=== PATIENT | male | born 1960 | race Caucasian/White ===

== ENCOUNTER 2018-07-02 10:19 | Emergency (ER) | payer OTHER ==
[2018-07-02 12:32] LABS: Urine Blood NEGATIVE (NEG); Urine Glucose NEGATIVE (NEG); Urine Protein NEGATIVE (NEG); Urine Specific Gravity >1.030 (1.005-1.030); Urine pH 5.5 (5.0-7.0)
--- NOTE | 2018-07-02 13:59 | RAD REPORT ---
EXAM DESCRIPTION: Jocy Martines And Chris (2 Views)07/02/2018 1:52 pm CLINICAL HISTORY: Chest pain COMPARISON: None FINDINGS: The lungs appear clear of acute infiltrate. The heart is normal size. A displaced rib fra cture is not seen on this limited evaluation
--- NOTE | 2018-07-02 14:02 | ER ---
Nurse's Notes [facility] Name: Allen Hardy Age: 58 yrs Sex: Male : 1960 Arrival Date: 07/02/2018 Time: 10:24 Bed 12 Private MD: None, None Diagnosis: Myalgia Presentation: 07/02 10:45 Presenting complaint: Patient states: R side pain x 1 week, reports that pain is ph reproduced upon palpation, denies injury or SOB, also denies urinary symptoms or fever N/V. Transition of care: patient was not received from another setting of care. Onset of symptoms was July 02, 2018. Risk Assessment: Do you want to hurt yourself or someone else? Patient reports no desire to harm self or others. Care prior to arrival: None. 10:45 Method Of Arrival: Ambulatory ph 10:45 Acuity: TEE 3 ph 12:22 Initial Sepsis Screen: Does the patient meet any 2 criteria? No. Patient's initial ph sepsis screen is negative. Does the patient have a suspected source of infection? No. Patient's initial sepsis screen is negative. Triage Assessment: 14:17 General: Appears. ss Historical: - Allergies: 10:48 No Known Allergies; ph - Home Meds: 10:48 None [Active]; ph - PMHx: 10:48 None; ph - PSHx: 10:48 Knee surgery; ph - Immunization history:: Adult Immunizations unknown. - Social history:: Smoking status: Patient/guardian denies using tobacco. - Ebola Screening: : No symptoms or risks identified at this time. Screenin:22 Abuse screen: Denies threats or abuse. Denies injuries from another. Nutritional ph screening: No deficits noted. Tuberculosis screening: No symptoms or risk factors identified. Fall Risk None identified. Assessment: 12:21 Pain: Complains of pain in right lateral posterior chest Pain does not radiate. Neuro: ph Level of Consciousness is awake, alert, obeys commands, Oriented to person, place, time, situation. Cardiovascular: Denies chest pain, lightheadedness, nausea, shortness of breath. Respiratory: Airway is patent Respiratory effort is even, unlabored, Respiratory pattern is regular, symmetrical, Denies shortness of breath pain with respiration, pain with cough, pain with movement. GI: No signs and/or symptoms were reported involving the gastrointestinal system. Derm: Skin is intact, is healthy with good turgor, Skin is pink, warm \T\ dry. Musculoskeletal: Circulation, motion, and sensation intact. Range of motion: intact in all extremities. 13:30 Reassessment: Patient appears in no apparent distress at this time. Patient and/or ss family updated on plan of care and expected duration. Pain level reassessed. Patient is alert, oriented x 3, equal unlabored respirations, skin warm/dry/pink. Pt awaiting xray. 14:17 Reassessment: Patient appears in no apparent distress at this time. Patient and/or ss family updated on plan of care and expected duration. Pain level reassessed. Patient is alert, oriented x 3, equal unlabored respirations, skin warm/dry/pink. Pt d/c home. Vital Signs: 10:47 BP 120 / 94; Pulse 87; Resp 18; Temp 97.7; Pulse Ox 95% on R/A; Weight 136.08 kg; ph Height 6 ft. 4 in. (193.04 cm); Pain 8/10; 14:17 BP 118 / 87; Pulse 81; Resp 18; Temp 97.6; Pulse Ox 99% on R/A; ss 10:47 Body Mass Index 36.52 (136.08 kg, 193.04 cm) ph ED Course: 10:24 Patient arrived in ED. sb2 10:25 None, None is Private Physician. sb2 10:47 Triage completed. ph 10:48 Arm band placed on Patient placed in waiting room, Patient notified of wait time. Urine ph obtained. 12:00 Alexandra Bowers FNP-C [facility]. kb 12:00 Charles Suresh MD is Attending Physician. kb 12:21 Trupti Rosen, HANNAH is Primary Nurse. ph 12:22 Patient has correct armband on for positive identification. Bed in low position. Call ph light in reach. 13:45 X-ray completed. Patient tolerated procedure well. Patient moved back from radiology. jb2 14:18 No provider procedures requiring assistance completed. Patient did not have IV access ss during this emergency room visit. Administered Medications: No medications were administered Outcome: 14:01 Discharge ordered by . kb 14:18 Discharged to home ambulatory, with family. ss 14:18 Condition: good 14:18 Discharge instructions given to patient, Instructed on discharge instructions, follow up and referral plans. medication usage, Demonstrated understanding of instructions, follow-up care, medications, Prescriptions given X 1. 14:18 Patient left the ED. Signatures: Alexandra Bowers FNP-C FNP-Ckb Buechter, Jesse jb2 Maricruz Gaspar RN RN Trupti Rosen RN RN Arias, Mayra alexander2
--- NOTE | 2018-07-02 14:02 | EDPHYS ---
Physician Documentation [facility] Name: Allen Hardy Age: 58 yrs Sex: Male : 1960 Arrival Date: 07/02/2018 Time: 10:24 Bed 12 Private MD: None, None ED Physician Charles Suresh HPI: 07/02 12:59 This 58 yrs old Male presents to ER via Ambulatory with complaints of SIDE kb PAIN. 12:59 The patient presents with pain that is acute, with no known mechanism of injury. The kb symptoms are located in the left mid back. Onset: The symptoms/episode began/occurred 1 week(s) ago. The pain does not radiate. Associated signs and symptoms: The patient has no apparent associated signs or symptoms. The problem was sustained without known cause. Modifying factors: The patient symptoms are alleviated by nothing, the patient symptoms are aggravated by movement. Severity of symptoms: At their worst the symptoms were mild, moderate, in the emergency department the symptoms are unchanged. The patient has not experienced similar symptoms in the past. The patient has not recently seen a physician. Historical: - Allergies: 10:48 No Known Allergies; ph - Home Meds: 10:48 None [Active]; ph - PMHx: 10:48 None; ph - PSHx: 10:48 Knee surgery; ph - Immunization history:: Adult Immunizations unknown. - Social history:: Smoking status: Patient/guardian denies using tobacco. - Ebola Screening: : No symptoms or risks identified at this time. ROS: 12:55 Constitutional: Negative for fever, chills, and weight loss, ENT: Negative for injury, kb pain, and discharge, Cardiovascular: Negative for chest pain, palpitations, and edema, Respiratory: Negative for shortness of breath, cough, wheezing, and pleuritic chest pain, Abdomen/GI: Negative for abdominal pain, nausea, vomiting, diarrhea, and constipation, : Negative for injury, bleeding, discharge, and swelling, MS/Extremity: Negative for injury and deformity, Skin: Negative for injury, rash, and discoloration, Neuro: Negative for headache, weakness, numbness, tingling, and seizure. 12:55 Back: Positive for of the left mid back. Exam: 12:55 Constitutional: This is a well developed, well nourished patient who is awake, alert, kb and in no acute distress. Head/Face: Normocephalic, atraumatic. Neck: Trachea midline, no thyromegaly or masses palpated, and no cervical lymphadenopathy. Supple, full range of motion without nuchal rigidity, or vertebral point tenderness. No Meningismus. Chest/axilla: Normal chest wall appearance and motion. Nontender with no deformity. No lesions are appreciated. Cardiovascular: Regular rate and rhythm with a normal S1 and S2. No gallops, murmurs, or rubs. Normal PMI, no JVD. No pulse deficits. Respiratory: Lungs have equal breath sounds bilaterally, clear to auscultation and percussion. No rales, rhonchi or wheezes noted. No increased work of breathing, no retractions or nasal flaring. Abdomen/GI: Soft, non-tender, with normal bowel sounds. No distension or tympany. No guarding or rebound. No evidence of tenderness throughout. Skin: Warm, dry with normal turgor. Normal color with no rashes, no lesions, and no evidence of cellulitis. MS/ Extremity: Pulses equal, no cyanosis. Neurovascular intact. Full, normal range of motion. Neuro: Awake and alert, GCS 15, oriented to person, place, time, and situation. Cranial nerves II-XII grossly intact. Motor strength 5/5 in all extremities. Sensory grossly intact. Cerebellar exam normal. Normal gait. 12:55 Back: pain, that is mild, of the left mid back, ROM is painful, normal spinal alignment noted. Vital Signs: 10:47 BP 120 / 94; Pulse 87; Resp 18; Temp 97.7; Pulse Ox 95% on R/A; Weight 136.08 kg; ph Height 6 ft. 4 in. (193.04 cm); Pain 8/10; 14:17 BP 118 / 87; Pulse 81; Resp 18; Temp 97.6; Pulse Ox 99% on R/A; ss 10:47 Body Mass Index 36.52 (136.08 kg, 193.04 cm) ph MDM: 12:00 Patient medically screened. kb 12:55 Data reviewed: vital signs, nurses notes. Data interpreted: Pulse oximetry: on room air kb is 95 %. Interpretation: acceptable. 14:01 Counseling: I had a detailed discussion with the patient and/or guardian regarding: the kb historical points, exam findings, and any diagnostic results supporting the discharge/admit diagnosis, radiology results, the need for outpatient follow up, a family practitioner, to return to the emergency department if symptoms worsen or persist or if there are any questions or concerns that arise at home. 07/02 11:05 Order name: Urine Dipstick--Ancillary (enter results); Complete Time: 12:34 em1 07/02 12:03 Order name: Chest Pa And Lat (2 Views) XRAY kb 07/02 11:06 Order name: Urine Dipstick-Ancillary (obtain specimen); Complete Time: 12:04 em1 07/02 14:01 Order name: RAD; Complete Time: 14:03 EDMS Administered Medications: No medications were administered Disposition: 07/02/18 14:01 Discharged to Home. Impression: Myalgia. - Condition is Stable. - Discharge Instructions: Back Pain, Adult, [id number]. - Prescriptions for Diclofenac Sodium 75 mg Oral Tablet, Delayed Release (E.C.) - take 1 tablet by ORAL route 2 times per day As needed; 30 tablet. - Work release form, Medication Reconciliation Form, Thank You Letter, Antibiotic Education, Prescription Opioid Use form. - Follow up: Emergency Department; When: As needed; Reason: Worsening of condition. Follow up: Private Physician; When: 2 - 3 days; Reason: Recheck today's complaints, Continuance of care, Re-evaluation by your physician. Addendum: 07/04/2018 09:08 Co-signature as Attending Physician, Charles Suresh MD I agree with the assessment and k dr plan of care. Signatures: Dispatcher [employer] EDVA Alexandra Bowers, PRODUCTION SHIFT SUPERVISOR-C PRODUCTION SHIFT SUPERVISOR-CkCharles Landers MD MD [facility] Higinio Phillip em1 Maricruz Gaspar, HANNAH RN ss Trupti Rosen RN RN ph Corrections: (The following items were deleted from the chart) 07/02 14:18 14:01 07/02/2018 14:01 Discharged to Home. Impression: Myalgia. Condition is Stable. ss Forms are Medication Reconciliation Form, Thank You Letter, Antibiotic Education, Prescription Opioid Use. Follow up: Emergency Department; When: As needed; Reason: Worsening of condition. Follow up: Private Physician; When: 2 - 3 days; Reason: Recheck today's complaints, Continuance of care, Re-evaluation by your physician. kb
== END 2018-07-02 14:18 | disposition home or self-care (01) ==
LOC: ER 10:19
DX: M79.10 Myalgia, unspecified site (principal)
CPT/HCPCS: 71046; 81003; 99283

== ENCOUNTER 2021-11-01 20:48 | Emergency (ER) | payer OTHER ==
--- OUTSIDE RECORDS SUMMARY | 2021-11-01 20:50 | XMS REPORT | Continuity of Care Document ---
:1960 Author Organization [facility] t Address [address] [place] [address] Care Team Providers Name Role Phone MARVEL SEWELL Attending Clinician Unavailable Mery MCNEILL Attending Clinician Payers Payer Name Policy Type Policy Number Effective Date Expiration Date [facility] [id number] 2016 CHOICE 00:00:00 Problems Condition Condition Condition Status Onset Resolution Last Treating Co mments Source Name Details Category Date Date Treatment Clinician Date No known No known Disease [facility] active [place] problems problems of Medicin e Allergies, Adverse Reactions, Alerts Allergy Allergy Status Severity Reaction(s) Onset Inactive Treating Comm ents Source Name Type Date Date Clinician NO KNOWN Drug Active Univers ALLERGIE Class ity of [facility] Social History Social Habit Start Date Stop Date Quantity Comments Source Sex Assigned At [facility] Co llege of Medicine Alcohol intake 2019-08-25 2019-08-25 Current [facility] Col lege 00:00:00 00:00:00 non-drinker of of Medicin e alcohol (finding) Smoking Status Start Date Stop Date Source Never smoker [facility] o f Medicine Medications Ordered Filled Start Stop Current Ordering Indication Dosage Frequency Signature Comments Components Source Medication Medication Date Date Medication? Clinician (SIG) Name Name Cholecalcif 2020- No 1000U Take 1,000 [facility] [place] 08-25 Units by [place] (VITAMIN 16:35: 00:00 mouth. of D-1000 MAX 08 :[address]) 1000 e units TABS azelastine 2018-08 2020- No [id number] USE 2 [facility] (ASTELIN) 08-07 SPRAYS IN [place] ege 0.1 % nasal 00:00: 00:00 EACH of spray 00 :00 NOSTRIL 2 Medicin TIMES A e DAY fluticasone 2018-08 2020- No [id number] SPRAY 2 [facility] (FLONASE) 08-07 SPRAYS [place] 50 MCG/ACT 00:00: 00:00 INTO EACH o f nasal spray 00 :00 NOSTRIL Medic in EVERY DAY e testosteron 2019- No INJECT 1 [facility] [place] e cypionate 01-28 [facility] [facility] ollege (DEPOTESTOT 00:00: 00:00 S of ERONE 00 :00 INTRAMUSCU Medicin CYPIONATE) ALLRY ONCE e 200 MG/ML A WEEK injection [facility] ALLERGY 2019- No TAKE 1 [place] wong RELIEF-D 08-04 TABLET BY Colle ge 10-240 MG 00:00: 00:00 MOUTH of per tablet 00 :00 EVERY DAY Medi radha e fluticasone 2019- No SPRAY 2 [facility] (FLONASE) 08-04 SPRAYS [place] 50 MCG/ACT 00:00: 00:00 INTO EACH o f nasal spray 00 :00 NOSTRIL Medic in EVERY DAY e Vital Signs Vital Name Observation Time Observation Value Comments Source Body height 2019-08-25 16:34:00 193 cm [facility] ollege of Medicine Body weight 2019-08-25 16:34:00 133.811 kg [facility] ol[facility] of Medicine BMI 2019-08-25 16:34:00 35.91 kg/m2 [facility] ollege of Medicine Procedures This patient has no known procedures. Plan of Care Planned Activity Planned Date Details Comments Source Future Scheduled ORT - XR KNEE LEFT Ordered: 0 [facility] Test 4V (CHARGE ONLY) of Medicine [code = 76573] Future Scheduled HANDICAPPED PLACARD Ordered: 08/25/19 20 [facility] Test [code = NOCPT] of Medicine Future Scheduled COLON CANCER [facility] ege Test SCREENING: of Medicine COLONOSCOPY [code = COLON CANCER SCREENING: COLONOSCOPY] Future Scheduled TETANUS SHOT [facility] ege Test (ADULT) [code = of Medicine TETANUS SHOT (ADULT)] Future Scheduled BMI FOLLOW UP PLAN [facility] r [place] Test [code = BMI FOLLOW of Medici ne UP PLAN] Future Scheduled HEPATITIS C [facility] ege Test SCREENING [code = of Medicin e HEPATITIS C SCREENING] Future Scheduled HIV SCREENING [code [facility] or [place] Test = HIV SCREENING] of Medicine Future Scheduled FLU VACCINE > 6 [facility] C ollege Test MONTHS [code = FLU of Medici ne VACCINE > 6 MONTHS] Future Scheduled GEL ONE PROC INJ 1 Occurrences [facility] Test [code = 67833] starting 08/25/2019 of Med icine until 08/25/2020 Encounters Start End Encounter Admission Attending Care Care Encounter Source Date/Time Date/Time Type Type Clinicians Facility Department ID 2020-11-01 2020-11-01 Outpatient [facility] [id number] Univers 15:40:00 15:40:[id number] [facility] 2020-11-01 2020-11-01 Outpatient [facility] [id number] Univers 15:40:00 15:40:00 [facility] 2020-10-11 2020-10-11 Outpatient Khalida SEWELL, [facility] [id number] Univers 17:30:00 17:30:[address] [facility] 2019-08-25 2019-08-25 Office MARCY Ordonez [id number] [facility] 09:44:26 12:05:42 Visit Brien AMBULATOR [id number] College Y [id number] of [id number] Medi radha 600 e Results Test Description Test Time Test Comments Results Result Sour e Comments CT, MAXILLOFACIAL 2019-02-01 FINAL REPORT PATIENT ID: CANDIS TRAN [id number] History: 13:05:00 Chronic sinusitisComparison studies: None Technique: Axial images were obtained through the paranasal sinuses.Coronal and sagittal images reconstructed from the axial data.Radiation dose: Total DLP: To 89 mGy*cm. Estimated effective dose: DLP x 0.015 Intravenous contrast: None Findings: Paranasal sinuses: Right anterior complex:Frontal sinus: Clear.Frontonasal recess: Clear.Anterior ethmoid air cells: Clear.Ostiomeatal unit: Clear.Maxillary sinus: Clear. Left anterior complex:Frontal sinus: Clear.Frontonasal recess: Clear.Anterior ethmoid air cells: Clear.Ostiomeatal unit: Clear.Maxillary sinus: Nearly completely opacified with mucosal thickening and retention cyst or polyp. Posterior complex:Sphenoid sinuses: Clear.Sphenoethmoidal recesses: Clear.Posterior ethmoid air cells: Clear. Nasal vestibule and nasal cavity:A 2.5 cm polypoid lesion with likely attachment the left middle turbinate or nasal septum projects posteriorly through the left nasal cavity and nasal choana to the nasopharynx. Nasal septum: S-shaped nasal septal deviation. The anterior cartilaginous septum is deviated to the patient's right. The bony septum is deviated to the patient's left Other: Agger Nasi: Clear bilaterally.Turbinates: No martin bullosa.Rosio cells: None Lamina papyracea: Intact.Cribriform plates: Asymmetric, approximately 8.5 mm on the right and 7 mm on the left globe the level of the fovea ethmoidalis.Olfactory recesses: ClearOptic canals: Not dehiscentOnodi cells: NoneInternal carotid arteries: Not is not. Sphenoid sinuses: Dominant right sinus. The lateral recesses are not aerated. Orbits: No abnormalities.Bones: No abnormalities.Temporal bones: No gross abnormalities. IMPRESSION: 1.Left nasal polypoid lesion with attachment near the septum or middle turbinate extends into the left nasal cavity. Recommend correlation with direct visualization.2.S-shaped nasal septal deviation.3.Opacified left maxillary sinus, likely by polyp or retention cyst.4.Remaining sinuses are clear. Patent sinus drainage pathways. Signed: Faraz Bassett MDReport Verified Date/Time: 02/22/2019 13:05:06 Reading Location: [facility] Room [address] [place] [address]
[2021-11-01 21:10] LABS: Urine Blood Trace-intact (Negative); Urine Glucose Negative (Negative); Urine Protein Negative (Negative); Urine Specific Gravity >=1.030 (1.005-1.030)
[2021-11-01] MEDS ORDERED: MORPHINE 4 MG/ML SYR ONE (22:57)
[2021-11-01 23:31] LABS: Absolute Lymphocytes (CBC) 1.9 K/uL (0.7-4.9); Hematocrit 43.7 % (39.6-49.0); Lymphocytes % 24.8 % (15.3-44.8); MPV 7.9 fL (7.6-11.3); RBC Red Blood Cell Count 4.92 M/uL (4.33-5.43)
[2021-11-01 23:47] LABS: Albumin 3.4 g/dL (3.4-5.0); Bilirubin Total 0.8 mg/dL (0.2-1.0); Potassium 3.7 mmol/L (3.5-5.1)
[2021-11-02] MEDS ORDERED: NA CHLORIDE 0.9% 1,000 ML ONE (00:18)
[2021-11-02] MEDS ORDERED: NA CHLORIDE 0.9% 100 ML IV ONE (00:35)
[2021-11-02] MEDS ORDERED: CEFTRIAXONE 1000 MG/VIAL ONE (00:35)
[2021-11-02] MEDS ORDERED: METRONIDAZOLE 500mg IVPB 500 MG/100 ML BAG IV ONE (00:36)
--- NOTE | 2021-11-02 00:56 | EDPHYS ---
Physician Documentation [facility] Name: Allen Hardy Age: 61 yrs Sex: Male : 1960 Arrival Date: 11/01/2021 Time: 20:52 Bed 16 Private MD: ED Physician Eric Burris HPI: 11/02 00:11 This 61 yrs old Male presents to ER via Ambulatory with complaints of Flank Pain - Left.mh7 00:11 The patient complains of pain in the left flank. The pain does not radiate. Onset: The mh7 symptoms/episode began/occurred 3 day(s) ago. Modifying factors: The symptoms are alleviated by nothing. the symptoms are aggravated by movement, palpation/percussion. Associated signs and symptoms: Pertinent negatives: diarrhea, dizziness, dysuria, fever, urinary frequency, headache, hematuria, nausea, pain radiating to the lower extremities, vomiting. Severity of pain: At its worst the pain was moderate yesterday, in the emergency department the pain has improved moderately. Historical: - Allergies: 11/01 21:01 No Known Allergies; ab2 - Home Meds: 21: None [Active]; ab2 - PMHx: 21: None; ab2 - Immunization history:: Adult Immunizations up to date. - Social history:: Smoking status: Patient denies any tobacco usage or history of. ROS: 11/02 00:11 Constitutional: Negative for fever, chills, and weight loss, Eyes: Negative for injury, mh7 pain, redness, and discharge, ENT: Negative for injury, pain, and discharge, Neck: Negative for injury, pain, and swelling, Cardiovascular: Negative for chest pain, palpitations, and edema, Respiratory: Negative for shortness of breath, cough, wheezing, and pleuritic chest pain, Abdomen/GI: Negative for abdominal pain, nausea, vomiting, diarrhea, and constipation, : Negative for injury, bleeding, discharge, and swelling, MS/Extremity: Negative for injury and deformity, Skin: Negative for injury, rash, and discoloration, Neuro: Negative for headache, weakness, numbness, tingling, and seizure, Psych: Negative for depression, anxiety, suicide ideation, homicidal ideation, and hallucinations, Allergy/Immunology: Negative for hives, rash, and allergies, Endocrine: Negative for neck swelling, polydipsia, polyuria, polyphagia, and marked weight changes, Hematologic/Lymphatic: Negative for swollen nodes, abnormal bleeding, and unusual bruising. Exam: 00:11 Constitutional: This is a well developed, well nourished patient who is awake, alert, mh7 and in no acute distress. Head/Face: Normocephalic, atraumatic. Eyes: Pupils equal round and reactive to light, extra-ocular motions intact. Lids and lashes normal. Conjunctiva and sclera are non-icteric and not injected. Cornea within normal limits. Periorbital areas with no swelling, redness, or edema. Neck: Trachea midline, no thyromegaly or masses palpated, and no cervical lymphadenopathy. Supple, full range of motion without nuchal rigidity, or vertebral point tenderness. No Meningismus. Chest/axilla: Normal chest wall appearance and motion. Nontender with no deformity. No lesions are appreciated. Cardiovascular: Regular rate and rhythm with a normal S1 and S2. No gallops, murmurs, or rubs. Normal PMI, no JVD. No pulse deficits. Respiratory: Lungs have equal breath sounds bilaterally, clear to auscultation and percussion. No rales, rhonchi or wheezes noted. No increased work of breathing, no retractions or nasal flaring. 00:11 Back: No spinal tenderness. No costovertebral tenderness. Full range of motion. Skin: Warm, dry with normal turgor. Normal color with no rashes, no lesions, and no evidence of cellulitis. MS/ Extremity: Pulses equal, no cyanosis. Neurovascular intact. Full, normal range of motion. Neuro: Awake and alert, GCS 15, oriented to person, place, time, and situation. Cranial nerves II-XII grossly intact. Motor strength 5/5 in all extremities. Sensory grossly intact. Cerebellar exam normal. Normal gait. Psych: Awake, alert, with orientation to person, place and time. Behavior, mood, and affect are within normal limits. 00:11 Abdomen/GI: Inspection: obese Bowel sounds: normal, Palpation: mild abdominal tenderness, in the left lower quadrant, mass, is not appreciated, rebound tenderness, is not appreciated, voluntary guarding, is not appreciated, involuntary guarding, is not appreciated, no appreciated organomegaly, Rectal exam: the exam is deferred, because of patient request, Indicators: McBurney's point is not tender, Raman's sign is negative, Rovsing's sign is negative, Obturator sign is negative, Psoas sign is negative, Liver: no appreciated palpable abnormalities, Hernia: not appreciated. Vital Signs: 11/01 20:57 BP 111 / 89; Pulse 96; Resp 16; Temp 98.1; Pulse Ox 98% ; Weight 136.98 kg; Height 6 ab2 ft. 4 in. (193.04 cm); Pain 10/10; 22:44 Pulse 96; Resp 20; Pulse Ox 100% on R/A; Pain 10/10; tw5 11/02 00:25 BP 124 / 80; Pulse 76; Resp 16; Pulse Ox 100% on R/A; Pain 0/10; josesito 01:17 BP 126 / 76; Pulse 72; Resp 16; Temp 98.5; Pulse Ox 100% on R/A; Pain 0/10; josesito 11/01 20:57 Body Mass Index 36.76 (136.98 kg, 193.04 cm) ab2 MDM: 00:51 Differential diagnosis: nephrolithiasis, pyelonephritis, UTI, diverticulitis. Data [facility] reviewed: vital signs, nurses notes, lab test result(s), CBC, electrolytes, urinalysis, radiologic studies, CT scan. Data interpreted: Pulse oximetry: on room air is 100 %. Interpretation: normal. Counseling: I had a detailed discussion with the patient and/or guardian regarding: the historical points, exam findings, and any diagnostic results supporting the discharge/admit diagnosis, lab results, radiology results, the need for outpatient follow up, a concrete stone finisher. Response to treatment: the patient's symptoms have resolved after treatment, the patient's blood pressure is in an acceptable range, mental status has returned to baseline, the patient no longer shows bradycardia, the patient is not short of breath, the patient is not tachycardic, the patient's pain is gone, the patient's temperature has normalized, patient is well hydrated. 00:55 Patient medically screened. [facility] 11/01 21:10 Order name: Urine Dipstick-Ancillary; Complete Time: 22:47 EDMS 11/01 22:49 Order name: CBC with Diff; Complete Time: 23:48 [facility] 11/01 22:49 Order name: CMP; Complete Time: 23:48 [facility] 11/01 22:49 Order name: Lipase; Complete Time: 23:48 [facility] 11/01 22:49 Order name: CT Stone Protocol [facility] 11/01 21:04 Order name: Urine Dipstick-Ancillary (obtain specimen); Complete Time: 21:04 ab2 11/01 22:49 Order name: IV Saline Lock; Complete Time: 23:20 [facility] 11/01 22:49 Order name: Labs collected and sent; Complete Time: 23:21 [facility] Administered Medications: 11/01 23:24 Drug: morphine 4 mg Route: IM; Site: right deltoid; 5 11/02 00:25 Drug: NS 0.9% 1000 ml Route: IV; Rate: 1 bolus; Site: right hand; josesito 01:30 Follow up: IV Status: Completed infusion; IV Intake: 1000ml josesito 00:38 Drug: Rocephin (cefTRIAXone) 1 grams Route: IV; Rate: per protocol; Site: right hand; josesito 00:48 Follow up: IV Status: Completed infusion; IV Intake: 100ml josesito 00:49 Drug: Flagyl (metroNIDAZOLE) 500 mg Volume: 100 ml; Route: IVPB; Rate: 200 ml/hr; josesito Infused Over: 30 mins; Site: right hand; 01:29 Follow up: Response: No adverse reaction; IV Status: Completed infusion; IV Intake: josesito 100ml Disposition Summary: 11/02/21 00:55 Discharge Ordered Location: Home [facility] Problem: new [facility] Symptoms: have improved [facility] Condition: Stable [facility] Diagnosis - Diverticulitis of intestine, part unspecified, without perforation or abscess [facility] without bleeding Followup: [facility] - With: Private Physician - When: 1 - 2 days - Reason: Worsening of condition, Recheck today's complaints, Continuance of care, Re-evaluation by your physician Followup: [facility] - With: Smith Myers MD - When: 2 - 3 days - Reason: Worsening of condition, Further diagnostic work-up, Recheck today's complaints Discharge Instructions: - Discharge Summary Sheet [facility] - High-Fiber Diet [facility] - Diverticulitis, [id number] [facility] Forms: - Medication Reconciliation Form [facility] - Thank You Letter [facility] - Antibiotic Education [facility] - Prescription Opioid Use [facility] Prescriptions: - Flagyl 500 mg Oral Tablet - take 1 tablet by ORAL route every 8 hours for 10 days; 30 tablet; Refills: 0, [facility] Product Selection Permitted - Cipro 500 mg Oral Tablet - take 1 tablet by ORAL route every 12 hours for 7 days; 14 tablet; Refills: 0, [facility] Product Selection Permitted - dicyclomine 20 mg Oral Tablet - take 1 tablet by ORAL route 4 times per day As needed; 20 tablet; Refills: 0, [facility] Product Selection Permitted Signatures: Dispatcher [employer] Eric Rosas MD MD [facility] Tia Piedra [facility] Ping Neal RN RN Karel Weller 2
--- NOTE | 2021-11-02 00:56 | ER ---
Nurse's Notes [facility] Name: Allen Hardy Age: 61 yrs Sex: Male : 1960 Arrival Date: 11/01/2021 Time: 20:52 Bed 16 Private MD: Diagnosis: Diverticulitis of intestine, part unspecified, without perforation or abscess without bleeding Presentation: 11/01 20:57 Chief complaint: Patient states: "I'm having pain on the left side that started 3 days ab2 ago." Pt states he went to a clinic in [place] and they told him he had some blood in the urine but did not prescribe him anything. Coronavirus screen: Vaccine status: Patient reports receiving the 2nd dose of the covid vaccine. Client denies travel out of the [place] in the last 14 days. At this time, the client does not indicate any symptoms associated with coronavirus-19. Ebola Screen: Patient negative for fever greater than or equal to 101.5 degrees Fahrenheit, and additional compatible Ebola Virus Disease symptoms Patient denies exposure to infectious person. Patient denies travel to an Ebola-affected area in the 21 days before illness onset. No symptoms or risks identified at this time. Initial Sepsis Screen: Does the patient meet any 2 criteria? No. Patient's initial sepsis screen is negative. Does the patient have a suspected source of infection? No. Patient's initial sepsis screen is negative. Risk Assessment: Do you want to hurt yourself or someone else? Patient reports no desire to harm self or others. Onset of symptoms is unknown. 20:57 Method Of Arrival: Ambulatory ab2 20:57 Acuity: TEE 3 ab2 Triage Assessment: 21:01 General: Appears in no apparent distress. uncomfortable, Behavior is calm, cooperative, ab2 appropriate for age. Pain: Complains of pain in left mid back Pain currently is 10 out of 10 on a pain scale. EENT: No deficits noted. No signs and/or symptoms were reported regarding the EENT system. Neuro: No deficits noted. 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 Gait is steady, Speech is normal. Cardiovascular: No deficits noted. Respiratory: No deficits noted. Airway is patent Respiratory effort is even, unlabored, Respiratory pattern is regular, symmetrical. GI: No deficits noted. No signs and/or symptoms were reported involving the gastrointestinal system. : Reports blood in urine. Derm: Skin is intact, is healthy with good turgor, Skin is pink, warm \\T\\ dry. Historical: - Allergies: 21: No Known Allergies; ab2 - Home Meds: 21: None [Active]; ab2 - PMHx: 21: None; ab2 - Immunization history:: Adult Immunizations up to date. - Social history:: Smoking status: Patient denies any tobacco usage or history of. Screenin/02 00:25 Abuse screen: Denies threats or abuse. Denies injuries from another. Nutritional josesito screening: No deficits noted. Tuberculosis screening: No symptoms or risk factors identified. Fall Risk None identified. Assessment: 11/01 22:40 General: Patient rounding in waiting room patient states "It is a really sharp pain in tw5 my flank. I have never had a pain like this before. I took some advil last night but that is the last time I took anything for pain." . 23:42 Reassessment: The pt was moved to room #16 at this time. josesito 11/02 01:17 Reassessment: No changes from previously documented assessment. The pt's last abx is josesito infusing and then he will be dc'd home. The MD discussed the findings with the pt and his . He will f/u. Vital Signs: 11/01 20:57 BP 111 / 89; Pulse 96; Resp 16; Temp 98.1; Pulse Ox 98% ; Weight 136.98 kg; Height 6 ab2 ft. 4 in. (193.04 cm); Pain 10/10; 22:44 Pulse 96; Resp 20; Pulse Ox 100% on R/A; Pain 10/10; tw5 11/02 00:25 BP 124 / 80; Pulse 76; Resp 16; Pulse Ox 100% on R/A; Pain 0/10; josesito 01:17 BP 126 / 76; Pulse 72; Resp 16; Temp 98.5; Pulse Ox 100% on R/A; Pain 0/10; josesito 11/01 20:57 Body Mass Index 36.76 (136.98 kg, 193.04 cm) ab2 ED Course: 04/01 20:52 Patient arrived in ED. kz 21:01 Triage completed. ab2 21:01 Arm band placed on right wrist. ab2 22:44 Patient notified of wait time. tw5 22:[address] ambulated with Tech from waiting room. tw5 23:11 CT Stone Protocol In Process Unspecified. EDMS 23:21 CBC with Diff Sent. tw5 23:21 CMP Sent. tw5 23:21 Lipase Sent. tw5 23:42 Ping Neal, HANNAH is Primary Nurse. josesito 23:44 Eric Burris MD is Attending Physician. 7 11/02 00:38 No provider procedures requiring assistance completed. Inserted saline lock: 20 gauge josesito in right hand, using aseptic technique. 00:39 Patient has correct armband on for positive identification. Bed in low position. Call josesito light in reach. Side rails up X 1. Adult w/ patient. 00:54 Smith Myers MD is Referral Physician. 7 01:31 intact, bleeding controlled, No redness/swelling at site. Pressure dressing applied. josesito Administered Medications: 11/01 23:24 Drug: morphine 4 mg Route: IM; Site: right deltoid; tw5 11/02 00:25 Drug: NS 0.9% 1000 ml Route: IV; Rate: 1 bolus; Site: right hand; josesito 01:30 Follow up: IV Status: Completed infusion; IV Intake: 1000ml josesito 00:38 Drug: Rocephin (cefTRIAXone) 1 grams Route: IV; Rate: per protocol; Site: right hand; josesito 00:48 Follow up: IV Status: Completed infusion; IV Intake: 100ml josesito 00:49 Drug: Flagyl (metroNIDAZOLE) 500 mg Volume: 100 ml; Route: IVPB; Rate: 200 ml/hr; josesito Infused Over: 30 mins; Site: right hand; 01:29 Follow up: Response: No adverse reaction; IV Status: Completed infusion; IV Intake: josesito 100ml Intake: 00:48 IV: 100ml; Total: 100ml. josesito 01:29 IV: 100ml; Total: 200ml. josesito 01:30 IV: 1000ml; Total: 1200ml. josesito Outcome: 00:39 Condition: stable josesito 00:55 Discharge ordered by . 7 01:30 Discharged to home ambulatory, with family. josesito 01:30 Discharge instructions given to patient, Instructed on discharge instructions, follow up and referral plans. Demonstrated understanding of instructions, follow-up care, medications, Prescriptions given X 3. 01:31 Patient left the ED. josesito Signatures: Dispatcher [employer] Eric Rosas MD MD 7 Tia Piedra 5 Ping Neal RN RN Karel Weller Kelly kz
[2021-11-02 03:33] VITALS: O2SAT 100
[2021-11-02 03:36] VITALS: BP 126/76; TEMP 98.5
--- NOTE | 2021-11-02 12:56 | RAD REPORT ---
EXAM DESCRIPTION: CT - Stone Protocol - 11/02/2021 7:00 am CLINICAL HISTORY: 61 years Male, FLANK PAIN TECHNIQUE: Helical CT axial images are obtained from the lung bases to the pubic symphysis without I V contrast. No oral contrast was administered. Multiplanar reconstruction. This exam was performed ac cording to our departmental dose-optimization program, which includes automated exposure control, adj ustment of the mA and/or kV according to patient size and/or use of iterative reconstruction techniqu e. COMPARISON: 11/14/2012 FINDINGS: LUNG BASES: No basilar consolidation or effusions. LIVER: Normal in size. Normal attenuation. No focal masses. HEPATOBILIARY: Normal-appearing gallbladder. No intra- or extrahepatic ductal dilatation. SPLEEN: Normal size. PANCREAS: Normal size and contour. No focal mass. ADRENAL GLANDS: Normal size. No adrenal masses. KIDNEYS: No obstructing calculi or hydronephrosis bilaterally. Couple of 2 mm nonobstructing calcul i right upper and right lower pole. No left nephrolithiasis. No significant cysts are present. BOWEL AND MESENTERY: Moderate wall thickening distal descending colon with pericolonic fat stranding and subjacent diverticula. Additional diverticulosis throughout the remainder of the descending colon and throughout the sigmoid colon. No free fluid or peridiverticular abscess. Small hiatal hernia. No small or large bowel dilatation. Normal appendix. No abnormal mesenteric lymphadenopathy. No pne umoperitoneum. RETROPERITONEUM: Normal caliber abdominal aorta without aneurysm. Mild ASVD with tortuosity. No abn ormal retroperitoneal lymphadenopathy. PELVIS: Urinary bladder is suboptimally distended. Normal-sized prostate gland. ABDOMINAL WALL: The abdominal wall is intact. BONES: No suspicious osseous lytic or blastic lesions seen. IMPRESSION: 1. Acute uncomplicated diverticulitis of distal descending colon. No free fluid or per idiverticular abscess. 2. Couple of 2 mm nonobstructing calculi right upper and right lower pole. No obstructive uropathy. 3. Small hiatal hernia. Electronically signed by: Raafel Womack MD 11/01/2021 11:43 PM CDT Due to temporary technical issues with the PACS/Fluency reporting system, reports are being signed by the in house radiologists without review as a courtesy to insure prompt reporting. The interpreting radiologist is fully responsible for the content of the report.
== END 2021-11-02 01:31 | disposition home or self-care (01) ==
LOC: ER 20:48
DX: K57.32 Diverticulitis of large intestine without perforation or abscess without bleeding (principal)
CPT/HCPCS: 96365; 85025; 36415; 81003; 83690; 80053; 76377; 74176; 96375; 96372; 99284; J7030

== ENCOUNTER 2023-01-21 20:05 | Emergency (ER) | payer OTHER ==
--- OUTSIDE RECORDS SUMMARY | 2023-01-21 20:10 | XMS REPORT | Continuity of Care Document ---
:1960 Author Organization [facility] t Address [address] [place] [id number] [place] [id number] Care Team Providers Name Role Phone GINA HICKS JR Primary Care Physician Unavailable Brien Padilla MD Attending Clinician ATA REVELES Attending Clinician Unavailable ATA REVELES Attending Clinician Unavailable Ata Reveles MD Attending Clinician BRIEN PADILLA Attending Clinician Unavailable Brien Padilla MD Attending Clinician [phone] Constance Reardon MD Attending Clinician Obey Lomeli MD Attending Clinician Soren Garcia MD Attending Clinician Only, Ang Db Test Attending Clinician Unavailable Yovany Hebert MD Attending Clinician YOVANY HEBERT Attending Clinician Unavailable BRIEN PADILLA Attending Clinician Unavailable MARVEL SEWELL Attending Clinician Unavailable BRIEN PADILLA Admitting Clinician Unavailable Payers Payer Name Policy Type Policy Number Effective Date Expiration Date S [facility] [id number] INDIVIDUAL [facility] EXCHANGE [id number] 2021 00:00:00 [facility] [id number] 2016 CHOICE 00:00:00 Problems Condition Condition Condition Status Onset Resolution Last Treating Co mments Source Name Details Category Date Date Treatment Clinician Date Pes Pes Disease Active [facility] anserinus anserinus 01-19 [facility] bursitis bursitis 00:00: of of left of left 00 Medicin knee knee e Trochanter Trochanter Disease Active [facility] 01[facility]19 College bursitis bursitis 00:00: of of right of right 00 Medici n hip hip e Arthritis Arthritis Disease Active [facility] No known No known Disease Unive rs active active ity of problems problems [facility] Allergies, Adverse Reactions, Alerts Allergy Allergy Status Severity Reaction(s) Onset Inactive Treating Comm ents Source Name Type Date Date Clinician NO KNOWN Drug Active Univers ALLERGIE Class ity of S [facility] NO KNOWN Allergy Active [facility] St ALLERGIE [facility] Social History Social Habit Start Date Stop Date Quantity Comments Source Gender identity 2021-12-19 Identifies as [facility] 07:53:11 male gender Medicine (finding) Sexual orientation [facility] History of Social 2022-05-09 2022-05-09 [facility] College of function 00:00:00 00:00:00 Medicine Alcohol intake 2022-02-12 2022-02-12 Ex-drinker [facility] Jyothi es 00:00:00 00:00:00 (finding) Medical Center Exposure to 2022-01-28 2022-02-07 Not sure University SARS-CoV-2 (event) 00:00:00 09:55:00 [facility] Tobacco use and 2022-01-31 2022-01-31 Smokeless tobacco [facility] exposure 00:[facility]00 00:00:00 non-user [facility] Sex Ass[birth year] At [birth year] [facility] [place] udays 00:00:00 00:00:00 [facility] Smoking Status Start Date Stop Date Source Never smoked tobacco [facility] Medications Ordered Filled Start Stop Current Ordering Indication Dosage Frequency Signature Comments Components Source Medication Medication Date Date Medication? Clinician (SIG) Name Name oxycodone-a 2021- No 1{tbl} Take 1 [facility] cetaminophe 8-25 08-25 Tablet by Co llege n 10:54: 00:00 mouth of (PERCOCET) 16 :00 every 6 Medici n 10-325 MG hours as e per tablet needed. oxycodone-a Yes 1{tbl} Take 1 [facility] cetaminophe 8-16 Tablet by Col lege n 08:16: mouth of (PERCOCET) 33 every 6 Medici n 10-325 MG hours as e per tablet needed. metoprolol 2021- No 50mg Take 50 mg [facility] (TOPROL-XL) 8-16 08-16 by mouth. Co llege 50 MG XL 08:16: 00:00 of tablet 08 :00 Medicin e metoprolol Yes 50mg Take 50 mg [facility] (TOPROL-XL) 7-28 by mouth. Col lege 50 MG XL 09:55: of tablet 43 Medicin e gabapentin Yes 300mg Take 1 [facility] (NEURONTIN) 7- capsule by Co llege 300 MG 00:00: mouth 3 of capsule 00 times Medicin daily. e gabapentin 0 Yes 300mg Take 1 [facility] (NEURONTIN) 7-28 capsule by Co llege 300 MG 00:00: mouth 3 of capsule 00 times Medicin daily. e gabapentin 2021-2021- No 300mg Take 1 [facility] (NEURONTIN) - 08-25 capsule by C ollege 300 MG 00:00: 00:00 mouth 3 of capsule 00 :00 times Medicin daily. e oxycodone-a 2021-2021- No 1{tbl} Take 1 [facility] cetaminophe 7- 08-05 Tablet by Co llege n 00:00: 04:59 mouth of (PERCOCET) 00 :00 every 6 Medici n 10-325 MG hours as e per tablet needed for up to 7 days. aspirin 325 2021-2021- No 325mg Take 325 [facility] mg tablet 02-14 08-15 mg by Anju 00:00: 04:59 mouth. of 00 :00 Medicin e aspirin 325 2021-2021- No 325mg QD Take [address] [facility] tablet 7-15 08-14 tablet [facility] 00:00: 23:59 (325 mg Medical 00 :00 total) by Center mouth daily for 30 days. aspirin 325 0 2021- No 325mg QD Take [address] [facility] tablet 02-14 tablet [facility] 00:00: 23:59 (325 mg Medical 00 :00 total) by Center mouth daily for 30 days. aspirin 325 2021-0 2021- No 325mg QD Take [address] [facility] tablet 02-14 tablet [facility] 00:00: 23:59 (325 mg Medical 00 :00 total) by Center mouth daily for 30 days. metoprolol Yes 50mg QD Take [address] succinate 7-14 by mouth [facility] (TOPROL-XL) 11:38: daily. Medi gildardo 50 MG 24 hr 00 Center tablet testosteron 0 Yes 200mg Q7D Inject [address] e cypionate 7-14 mg [facility] (DEPOTESTOT 11:38: intramuscu Medical ERONE 00 larly once Center CYPIONATE) a week. 200 mg/mL injection LOVASTATIN 0 Yes QD Take by [facility] ORAL 7-14 [facility] 11:38: daily. [address] IBUPROFEN 0 Yes Take by [facility] ORAL 7-14 mouth as [facility] 11:38: needed. [address] metoprolol 0 Yes 50mg QD Take [address] succinate 7-14 by mouth [facility] (TOPROL-XL) 11:38: daily. Medi gildardo 50 MG 24 hr 00 Center tablet testosteron 0 Yes 200mg Q7D Inject [address] e cypionate 7-14 mg [facility] (DEPOTESTOT 11:38: intramuscu Medical ERONE 00 larly once Center CYPIONATE) a week. 200 mg/mL injection LOVASTATIN 2021-0 Yes QD Take by [facility] ORAL 7-14 [facility] 11:38: daily. [address] IBUPROFEN 0 Yes Take by [facility] t ORAL 7-14 mouth as [facility] 11:38: needed. [address] metoprolol 2021-0 Yes 50mg QD Take [address] succinate 7-14 by mouth [facility] (TOPROL-XL) 11:38: daily. Medi gildardo 50 MG 24 hr 00 Center tablet testosteron Yes 200mg Q7D Inject [address] e cypionate 7-14 mg [facility] (DEPOTESTOT 11:38: intramuscu Medical ERONE 00 larly once Center CYPIONATE) a week. 200 mg/mL injection LOVASTATIN Yes QD Take by [facility] ORAL 7-14 mouth [facility] 11:38: daily. [address] IBUPROFEN Yes Take by [facility] t ORAL 7-14 mouth as [facility] 11:38: needed. [address] hydrocodone 2021- No 1{tbl} Take 1 [facility] -acetaminop 7-10 07-28 Tablet by Co llege hen (NORCO) 00:00: 00:00 mouth of 10-325 MG 00 :00 every 6 Medicin per tablet hours as e needed. losartan Yes TAKE 1 [facility] (COZAAR) 50 6-27 TABLET BY Col lege MG tablet 00:00: MOUTH of 00 EVERY DAY Medicin e losartan 2021- No TAKE 1 [facility] (COZAAR) 50 6-27 08-16 TABLET BY Co llege MG tablet 00:00: 00:00 MOUTH of 00 :00 EVERY DAY Medicin e testosteron 2019-0 Yes 50mg Inject 50 [facility] e cypionate 2-10 mg into Colle ge (DEPOTESTOT 00:00: the muscle of ERONE 00 once. Medicin CYPIONATE) e 200 MG/ML injection testosteron 2020-0 Yes 50mg Inject 50 [facility] e cypionate 2-10 mg into Colle ge (DEPOTESTOT 00:00: the muscle of ERONE 00 once. Medicin CYPIONATE) e 200 MG/ML injection testosteron 2020-0 Yes 50mg Inject 50 [facility] e cypionate 2-10 mg into Colle ge (DEPOTESTOT 00:00: the muscle of ERONE 00 once. Medicin CYPIONATE) e 200 MG/ML injection testosteron 2020-0 Yes INJECT [facility] cypionate 2-10 INTRAMUSCU Co llege (DEPOTESTOT 00:00: LAR 1 ML of ERONE 00 ONCE A Medicin CYPIONATE) WEEK e 200 MG/ML injection testosteron 2020-0 Yes INJECT [facility] e cypionate 2-10 INTRAMUSCU Co llege (DEPOTESTOT 00:00: LAR 1 ML of ERONE 00 ONCE A Medicin CYPIONATE) WEEK e 200 MG/ML injection testosteron Yes 50mg Inject 50 [facility] e cypionate 2-10 mg into [facility] ge (DEPOTESTOT 00:00: the muscle of ERONE 00 once. Medicin CYPIONATE) e 200 MG/ML injection Cholecalcif 2020- No 1000U Take 1,000 [facility] [place] 08-25 Units by [facility] (VITAMIN 16:35: 00:00 mouth. of D-1000 MAX 08 :[address]) 1000 e units TABS azelastine 2018-08 2020- No [id number] USE 2 [facility] (ASTELIN) 08-07 SPRAYS IN [facility] 0.1 % nasal 00:00: 00:00 EACH of spray 00 :00 NOSTRIL 2 Medicin TIMES A e DAY fluticasone 2018-08 2020- No [id number] SPRAY 2 [facility] (FLONASE) 08-07 SPRAYS [facility] 50 MCG/ACT 00:00: 00:00 INTO EACH o f nasal spray 00 :00 NOSTRIL Medic in EVERY DAY e testosteron 2020- No INJECT 1 [facility] e cypionate 6-28 08-25 [facility] C ollege (DEPOTESTOT 00:00: 00:00 S of ERONE 00 :00 INTRAMUSCU Medicin CYPIONATE) ALLRY ONCE e 200 MG/ML A WEEK injection [facility] ALLERGY 2020- No TAKE 1 [facility] RELIEF-D 08-04 TABLET BY [facility] 10-240 MG 00:00: 00:00 MOUTH of per tablet 00 :00 EVERY DAY Medi radha e fluticasone 2020- No SPRAY 2 [facility] (FLONASE) 08-04 SPRAYS [facility] 50 MCG/ACT 00:00: 00:00 INTO EACH o f nasal spray 00 :00 NOSTRIL Medic in EVERY DAY e cholecalcif Yes 1000U Take 1,000 [facility] [place], 4-13 Units by ity of vitamin D3, 13:13: mouth [place] (VITAMIN 41 daily. Medical D3) 1,000 Branch unit tablet cholecalcif Yes 1000U Take 1,000 [facility] [place], 4-13 Units by ity of vitamin D3, 13:13: mouth [place] (VITAMIN 41 daily. Medical D3) 1,000 Branch unit tablet gabapentin 2017-0 Yes 300mg Take 1 Univ ers 300 mg 3-23 capsule by ity of capsule 00:00: mouth [place] 00 every 8 Medical (eight) Branch hours. For pain scale 1-3 naproxen 2017-0 Yes 500mg Take 1 Univer s 500 mg 3-23 tablet by ity of tablet 00:00: mouth 2 [place] 00 (two) Medical times Branch daily with meals. HYDROmorphO 2017-0 Yes 2mg Take 1 Univ ers ne 2 mg 3-23 tablet by ity of tablet 00:00: mouth [place] 00 every 4 Medical (four) Branch hours as needed for Pain (scale 7-10). gabapentin 2017-0 Yes 300mg Take 1 Univ ers 300 mg 3-23 capsule by ity of capsule 00:00: mouth [place] 00 every 8 Medical (eight) Branch hours. For pain scale 1-3 naproxen 2017-0 Yes 500mg Take 1 Univer s 500 mg 3-23 tablet by ity of tablet 00:00: mouth 2 00 (two) Medical times Branch daily with meals. HYDROmorphO 2017-0 Yes 2mg Take 1 Univ ers ne 2 mg 3-23 tablet by ity of tablet 00:00: mouth [place] 00 every 4 Medical (four) Branch hours as needed for Pain (scale 7-10). testosteron 2017-0 Yes 1mL 1 mL by Uni vers e cypionate 3-06 Intramuscu it y of 200 mg/mL 00:00: lar route Juan as injection 00 weekly. [facility] testosteron 2017-0 Yes 1mL 1 mL by Uni vers e cypionate 3-06 Intramuscu it y of 200 mg/mL 00:00: lar route Juan as injection 00 weekly. [facility] Immunizations Ordered Filled Immunization Date Status Comments [facility] Immunization Name Name SARS-COV-2 COVID-19 2020-11-01 Completed Unive rsity of PFIZER VACCINE 00:00:00 [facility] SARS-COV-2 COVID-19 2020-11-01 Completed Unive rsity of PFIZER VACCINE 00:00:00 [facility] SARS-COV-2 COVID-19 2020-10-11 Completed Unive rsity of PFIZER VACCINE 00:00:00 [place] Medi gildardo Branch SARS-COV-2 COVID-19 2020-10-11 Completed Unive rsity of PFIZER VACCINE 00:00:00 [facility] Vital Signs Vital Name Observation Time Observation Value Comments Source Body height 2023-01-19 16:48:00 193 cm [facility] ol[facility] of Medicine Body weight 2023-01-19 16:48:00 136.079 kg [facility] Medicine BMI 2023-01-19 16:48:00 36[facility]52 [facility] Systolic blood 2022-04-28 16:39:00 134 mm[Hg] [facility] Medicine Diastolic blood 2022-04-28 16:39:00 88 mm[Hg] [facility] Medicine Heart rate 2022-04-28 16:39:00 102 /min [facility] ollege [facility] Body temperature 2022-04-28 16:39:00 37.06 Blanca [facility] Respiratory rate 2022-04-28 16:39:00 16 /min [facility] Body height 2022-04-28 16:39:00 193 cm [facility] ollege of [facility] Body weight 2022-04-28 16:39:00 136.079 [facility] BMI 2022-04-28 16:39:00 36.52 kg/m2 [facility] Medicine Body height 2022-03-27 15:54:00 193 [facility] Body weight 2022-03-27 15:54:00 135.626 [facility] BMI 2022-03-27 15:54:00 36.40 kg/m2 [facility] Systolic blood 2022-03-18 13:14:00 128 mm[Hg] [facility] Medicine Diastolic blood 2022-03-18 13:14:00 90 mm[Hg] [facility] Medicine Heart rate 2022-03-18 13:14:00 89 /min [facility] of [facility] Body temperature 2022-03-18 13:14:00 36.78 Blanca [facility] Respiratory rate 2022-03-18 13:14:00 16 /min [facility] Body height 2022-03-18 13:14:00 193 cm [facility] C ollege of Medicine Body weight 2022-03-18 13:14:00 136.986 kg [facility] BMI 2022-03-18 13:14:00 36.76 kg/m2 [facility] Body height 2022-02-27 14:55:00 193 cm [facility] Body weight 2022-02-27 14:55:00 135.172 kg [facility] C [facility] of Medicine BMI 2022-02-27 14:55:00 36.27 kg/m2 [facility] HEIGHT 2022-02-12 10:27:00 193 cm WEIGHT 2022-02-12 10:27:00 144.8 kg WEIGHT 2022-01-31 11:02:00 140.615 kg HEIGHT 2022-01-31 11:02:00 193 cm HEIGHT 2022-02-12 10:27:00 193 cm WEIGHT 2022-02-12 10:27:00 144.8 kg WEIGHT 2022-01-31 11:02:00 140.615 kg HEIGHT 2022-01-31 11:02:00 193 cm HEIGHT 2022-02-12 10:27:00 193 cm WEIGHT 2022-02-12 10:27:00 144.8 kg WEIGHT 2022-01-31 11:02:00 140.615 kg HEIGHT 2022-01-31 11:02:00 193 cm Body height 2021-12-19 13:10:00 193 cm [facility] C [facility] of Medicine Body weight 2021-12-19 13:10:00 135.172 kg [facility] C [facility] of Medicine BMI 2021-12-19 13:10:00 36.27 kg/m2 [facility] of Medicine Body height 2019-08-25 16:34:00 193 cm [facility] C ol[facility] of Medicine Body weight 2019-08-25 16:34:00 133.811 kg [facility] BMI 2019-08-25 16:34:00 35.91 kg/m2 [facility] Systolic blood 2022-02-13 07:47:00 92 mm[Hg] [facility] Diastolic blood 2022-02-13 07:47:00 63 mm[Hg] [facility] Heart rate 2022-02-13 07:47:00 92 /min [facility] Body temperature 2022-02-13 07:47:00 36.22 Blanca [facility] Respiratory rate 2022-02-13 07:47:00 18 /min [facility] Oxygen saturation in 2022-02-13 07:47:00 92 /min [facility] Arterial blood by Medical Ce nter Pulse oximetry Body height 2022-02-12 10:27:00 193 cm [facility] Body weight 2022-02-12 10:27:00 144.8 kg [facility] BMI 2022-02-12 10:27:00 38.86 kg/m2 [facility] Procedures Procedure Date / Time Performed Performing Clinician Sour e LUMBAR MEDIAL BRANCH 2022-05-09 11:30:00 [facility] BILATERAL - Medicine LEVEL 1\\T\\2 XR LUMBAR SPINE COMP 2022-03-18 09:21:00 Ata Reveles [facility] WITH FLEX & EXT Center HEMOGLOBIN AND 2022-02-13 03:58:00 [facility] HEMATOCRIT Center BASIC METABOLIC PANEL 2022-02-13 03:58:[address] [facility] XR KNEE 1 OR 2 VIEWS 2022-02-12 13:57:00 Brien Padilla [facility] LEFT [facility] ANESTHESIA PERIPHERAL 2022-02-12 12:38:00 Kenroy Florez I [facility] BLOCK [facility] ANESTHESIA SPINAL 2022-02-12 12:36:29 Phillip Florezmary lou [facility] Center TISSUE EXAM 2022-02-12 12:34:00 Brien Padilla [facility] Center ARTHROPLASTY, KNEE, 2022-02-12 11:26:00 Brien Padilla [facility] UNILATERAL [facility] TYPE AND SCREEN, 2022-02-12 09:44:00 Brien Padilla [facility] AUTOMATED [facility] ORT - XR KNEE LEFT 4V 2021-12-19 08:11:42 [facility] (CHARGE ONLY) Medicine Plan of Care Planned Activity Planned Date Details Comments Source Future Scheduled 2023-04-[address] [facility] Test 00:00:00 (Season Ended) [code = Medic al Center INFLUENZA VACCINE (Season Ended)] Future Scheduled 2023-04-[address] [facility] Test 00:00:00 (Season Ended) [code = Medic al Center Influenza Vaccine (Season Ended)] Future Scheduled 2023-04-[address] [facility] Test 00:00:00 (Season Ended) [code = Medic al Center Influenza Vaccine (Season Ended)] Future Scheduled 2023-02-[address] [facility] Test 00:00:00 [facility] Medical Cent[facility] r Screening (12+) [code = Tobacco Cessation Counseling and Screening (12+)] Future Scheduled 2023-02-[address] [facility] Test 00:00:00 [facility] Cent[facility] r Screening (12+) [code = Tobacco Cessation Counseling and Screening (12+)] Future Scheduled 2023-02-[address] [facility] Test 00:00:00 [facility] Cent[facility] r Screening (12+) [code = Tobacco Cessation Counseling and Screening (12+)] Future Scheduled 2023-01-19 Screening for malignant [facility] Test 11:51:06 neoplasm of colon of Medicin e (procedure) [code = 336771628] Future Scheduled 2023-01-19 TETANUS SHOT (ADULT) [facility] Test 11:51:06 [code = TETANUS SHOT of Medi cine (ADULT)] Future Scheduled 2023-01-19 BMI Follow Up Plan [facility] Test 11:51:06 [code = BMI Follow Up of Med icine Plan] Future Scheduled 2023-01-19 Human immunodeficiency B [facility] Test 11:51:06 virus screening of Medicine (procedure) [code = 730254643] Future Scheduled 2023-01-19 Hepatitis C screening [facility] Test 11:51:06 (procedure) [code = of Medic ine 157353856] Future Scheduled 2023-01-19 Zoster Vaccine (1 of 2) [facility] Test 11:51:06 [code = Zoster Vaccine of Me dicine (1 of 2)] Future Scheduled 2023-01-19 COVID-19 Vaccine (3 - [facility] Test 11:51:06 Pfizer series) [code = of Me dicine COVID-19 Vaccine (3 - Pfizer series)] Future Scheduled 2023-01-19 FL[facility] 11:51:06 [code = FLU VACCINE > 6 of M edicine MONTHS] Future Scheduled 2022-08-[address] [facility] Test 00:00:00 (12+) [code = Medical Center DEPRESSION SCREENING (12+)] Future Scheduled 2022-08-[address] [facility] Test 00:00:00 (12+) [code = Medical Center DEPRESSION SCREENING (12+)] Future Scheduled 2022-08-[address] [facility] Test 00:00:00 (12+) [code = Medical Center DEPRESSION SCREENING (12+)] Future Scheduled 2022-04-28 Screening for malignant [facility] Test 12:00:01 neoplasm of colon of Medicin e (procedure) [code = 555510273] Future Scheduled 2022-04-28 TETANUS SHOT (ADULT) [facility] College Test 12:00:01 [code = TETANUS SHOT of Medi cine (ADULT)] Future Scheduled 2022-04-28 BMI FOLLOW UP PLAN [facility] College Test 12:00:01 [code = BMI FOLLOW UP of Med icine PLAN] Future Scheduled 2022-04-28 Hepatitis C screening Ba [facility] Test 12:00:01 (procedure) [code = of Medic ine 204272478] Future Scheduled 2022-04-28 Human immunodeficiency [facility] Test 12:00:01 virus screening of Medicine (procedure) [code = 313671002] Future Scheduled 2022-04-28 ZOSTER VACCINE (1 of 2) [facility] Test 12:00:01 [code = ZOSTER VACCINE of Me dicine (1 of 2)] Future Scheduled 2022-04-28 COVID-19 Vaccine (3 - [facility] Test 12:00:01 Booster for Pfizer of Medici ne series) [code = COVID-19 Vaccine (3 - Booster for Pfizer series)] Future Scheduled 2022-04-28 FLU VACCINE > 6 MONTH[facility] 12:00:01 [code = FLU VACCINE > 6 of M edicine MONTHS] Future Scheduled 2022-04-28 LUMBAR MEDIAL BRANCH 1 Occurrences [facility] [employer] Test 11:59:00 BLOCK BILATERAL - LEVEL starting of M edicine 1&2 [code = [id number]] 04/28/2022 until 04/28/2023 Future Scheduled 2022-03-27 Screening for malignant [facility] Test 10:54:57 neoplasm of colon of Medicin e (procedure) [code = 690589576] Future Scheduled 2022-03-27 TETANUS SHOT (ADULT) [facility] Test 10:54:57 [code = TETANUS SHOT of Medi cine (ADULT)] Future Scheduled 2022-03-27 BMI FOLLOW UP PLAN [facility] [employer] Test 10:54:57 [code = BMI FOLLOW UP of Med icine PLAN] Future Scheduled 2022-03-27 Hepatitis C screening Ba [facility] Test 10:54:57 (procedure) [code = of Medic ine 323925850] Future Scheduled 2022-03-27 Human immunodeficiency [facility] Test 10:54:57 virus screening of Medicine (procedure) [code = 856775903] Future Scheduled 2022-03-27 ZOSTER VACCINE (1 of 2) [facility] Test 10:54:57 [code = ZOSTER VACCINE of Al dicine (1 of 2)] Future Scheduled 2022-03-27 COVID-19 Vaccine (3 - [facility] Test 10:54:57 Booster for Pfizer of Medici ne series) [code = COVID-19 Vaccine (3 - Booster for Pfizer series)] Future Scheduled 2022-03-27 FLU VACCINE > 6 MONTHS [facility] 10:54:57 [code = FLU VACCINE > 6 of M edicine MONTHS] Future Scheduled 2022-03-27 XR KNEE LEFT AP, LAT, [facility] Test 10:54:41 BOTH OBLIQUES [code = of Med icine 35934-5] Future Scheduled 2022-03-18 XR LUMBAR SPINE AP 1 Occurrences [facility] Test 08:36:42 LATERAL OBLIQUES starting of Medicine FLEXION AND EXTENSION 03/18/2022 until [code = 97886-5] 03/18/2023 Future Scheduled 2022-03-18 MRI LUMBAR SPINE WO 1 Occurrences [facility] Test 08:36:42 CONTRAST [code = starting of Medicine 67610-1] 03/18/2022 until 03/18/2023 Future Scheduled 2022-03-18 Screening for malignant [facility] Test 08:15:46 neoplasm of colon of Medicin e (procedure) [code = 091543889] Future Scheduled 2022-03-18 TETANUS SHOT (ADULT) [facility] Test 08:15:46 [code = TETANUS SHOT of Medi cine (ADULT)] Future Scheduled 2022-03-18 BMI FOLLOW UP PLAN [facility] [employer] Test 08:15:46 [code = BMI FOLLOW UP of Med icine PLAN] Future Scheduled 2022-03-18 Hepatitis C screening [facility] [employer] Test 08:15:46 (procedure) [code = of Medic ine 098300554] Future Scheduled 2022-03-18 [facility] 08:15:46 virus screening of Medicine (procedure) [code = 843084520] Future Scheduled 2022-03-18 ZOSTER VACCINE (1 of 2) [facility] Test 08:15:46 [code = ZOSTER VACCINE of Me dicine (1 of 2)] Future Scheduled 2022-03-18 COVID-19 Vaccine (3 - [facility] Test 08:15:46 Booster for Pfizer of Medici ne series) [code = COVID-19 Vaccine (3 - Booster for Pfizer series)] Future Scheduled 2022-03-18 FLU VACCINE > 6 MONTHS [facility] Test 08:15:46 [code = FLU VACCINE > 6 of M edicine MONTHS] Future Scheduled 2022-02-27 Screening for malignant [facility] Test 10:35:49 neoplasm of colon of Medicin e (procedure) [code = 879336958] Future Scheduled 2022-02-27 TETANUS SHOT (ADULT) [facility] Test 10:35:49 [code = TETANUS SHOT of Medi cine (ADULT)] Future Scheduled 2022-02-27 BMI FOLLOW UP PLAN [facility] [employer] Test 10:35:49 [code = BMI FOLLOW UP of Med icine PLAN] Future Scheduled 2022-02-27 Hepatitis C screening [facility] [employer] Test 10:35:49 (procedure) [code = of Medic ine 242617358] Future Scheduled 2022-02-27 [facility] 10:35:49 virus screening of Medicine (procedure) [code = 802135084] Future Scheduled 2022-02-27 ZOSTER VACCINE (1 of 2) [employer] Test 10:35:49 [code = ZOSTER VACCINE of Me dicine (1 of 2)] Future Scheduled 2022-02-27 COVID-19 Vaccine (3 - Ba [facility] Test 10:35:49 Booster for Pfizer of Medici ne series) [code = COVID-19 Vaccine (3 - Booster for Pfizer series)] Future Scheduled 2022-02-27 FLU VACCINE > 6 MONTHS [facility] [employer] Test 10:35:49 [code = FLU VACCINE > 6 of M edicine MONTHS] Future Scheduled 2021-12-19 Screening for malignant [facility] Test 08:11:55 neoplasm of colon of Medicin e (procedure) [code = 145796768] Future Scheduled 2021-12-19 TETANUS SHOT (ADULT) [facility] Test 08:11:55 [code = TETANUS SHOT of Medi cine (ADULT)] Future Scheduled 2021-12-19 BMI FOLLOW UP PLAN [facility] [employer] Test 08:11:55 [code = BMI FOLLOW UP of Med icine PLAN] Future Scheduled 2021-12-19 Hepatitis C screening [facility] Test 08:11:55 (procedure) [code = of Medic ine [id number]] Future Scheduled 2021-12-19 Human immunodeficiency B [facility] Test 08:11:55 virus screening of Medicine (procedure) [code = 734687761] Future Scheduled 2021-12-19 ZOSTER VACCINE (1 of 2) [facility] Test 08:11:55 [code = ZOSTER VACCINE of Al dicine (1 of 2)] Future Scheduled 2021-12-19 COVID-19 Vaccine (3 - Ba [facility] Test 08:11:55 Booster for Pfizer of Medici ne series) [code = COVID-19 Vaccine (3 - Booster for Pfizer series)] Future Scheduled 2021-12-19 FLU VACCINE > 6 MONTHS [facility] [employer] Test 08:11:55 [code = FLU VACCINE > 6 of M edicine MONTHS] Future Scheduled 2021-12-19 ORT - XR KNEE LEFT 4V Ordered: Ba [facility] Test 08:11:42 (CHARGE ONLY) [code = 12/19/2021 of Med icine 54951] Future Scheduled 2020-12-27 COVID-19 VACCINE (3 - [facility]:00 Booster for Pfizer Medical C enter series) [code = COVID-19 VACCINE (3 - Booster for Pfizer series)] Future Scheduled 2020-12-27 COVID-19 VACCINE (3 - [facility] Test 00:00:00 Booster for Pfizer Medical C enter series) [code = COVID-19 VACCINE (3 - Booster for Pfizer series)] Future Scheduled 2020-12-27 COVID-19 VACCINE (3 - [facility] Test 00:00:00 Booster for Pfizer Medical C enter series) [code = COVID-19 VACCINE (3 - Booster for Pfizer series)] Future Scheduled 2010 SHINGLES VACCINES ([address] [facility] Test 00:00:00 2) [code = [facility] VACCINES (1 of 2)] Future Scheduled 2010 SHINGLES VACCINES ([address] [facility] Test 00:00:00 2) [code = SHINGLES Medical Center VACCINES (1 of 2)] Future Scheduled 2010 SHINGLES VACCINES ([address] [facility] Test 00:00:00 2) [facility] Future Scheduled 1995 Lipid panel (procedure) [facility] Test 00:00:00 [code = 11106093] Medical Ce nter Future Scheduled 1995 Lipid panel (procedure) [facility] Test 00:00:00 [code = 73385975] Medical Ce nter Future Scheduled 1995 Lipid panel (procedure) [facility] Test 00:00:00 [code = 62048968] Medical Ce nter Future Scheduled 1979 DTAP/TDAP/TD VACCINES [facility] 00:00:00 (1 - Tdap) [code = Medical C enter DTAP/TDAP/TD VACCINES (1 - Tdap)] Future Scheduled 1979 DTAP/TDAP/TD VACCINES [facility] 00:00:00 (1 - Tdap) [code = Medical C enter DTAP/TDAP/TD VACCINES (1 - Tdap)] Future Scheduled 1979 DTAP/TDAP/TD VACCINES [facility] 00:00:00 (1 - Tdap) [code = Medical C enter DTAP/TDAP/TD VACCINES (1 - Tdap)] Future Scheduled 1978 HEPATITIS C [facility]CREENING [facility] 00:00:00 [code = HEPATITIS [facility] Center SCREENING] Future Scheduled 1978 HEPATITIS C [facility] 00:00:00 [code = HEPATITIS C Medical Center SCREENING] Future Scheduled 1978 HEPATITIS C [facility] 00:00:00 [code = HEPATITIS C Medical Center SCREENING] Future Scheduled 1960 CT Colonography (combo) [facility] Test 00:00:00 [code = CT Colonography [facility] (combo)] Future Scheduled 1960 Screening for malignant [facility] Test 00:00:00 neoplasm of colon Medical Ce nter (procedure) [code = 834388126] Future Scheduled 1960 Screening for malignant [facility] Test 00:00:00 neoplasm of colon Medical Ce nter (procedure) [code = 461901807] Future Scheduled 1960 Screening for malignant [facility] Test 00:00:00 neoplasm of colon Medical Ce nter (procedure) [code = 697729824] Future Scheduled 1960 Screening for malignant [facility] Test 00:00:00 neoplasm of colon Medical Ce nter (procedure) [code = 469066158] Future Scheduled 1960 Sigmoidoscopy [code = [facility] 00:[facility] Sigmoidoscopy] Medical Cente r Future Scheduled 1960 CT Colonography (combo) [facility] Test 00:00:00 [code = CT Colonography [facility] (combo)] Future Scheduled 1960 Screening for malignant [facility] Test 00:00:00 neoplasm of colon Medical Ce nter (procedure) [code = 540105378] Future Scheduled 1960 Screening for malignant [facility] Test 00:00:00 neoplasm of colon Medical Ce nter (procedure) [code = 600698655] Future Scheduled 1960 Screening for malignant [facility] Test 00:00:00 neoplasm of colon Medical Ce nter (procedure) [code = 739243027] Future Scheduled 1960 Screening for malignant [facility] Test 00:00:00 neoplasm of colon Medical Ce nter (procedure) [code = 530908911] Future Scheduled 1960 Sigmoidoscopy [code = [facility] 00:[facility] Sigmoidoscopy] Medical Cente r Future Scheduled 1960 CT Colonography (combo) [facility] Test 00:00:00 [code = CT Colonography [facility] (combo)] Future Scheduled 1960 Screening for malignant [facility] Test 00:00:00 neoplasm of colon Medical Ce nter (procedure) [code = 339501983] Future Scheduled 1960 Screening for malignant [facility] Test 00:00:00 neoplasm of colon Medical Ce nter (procedure) [code = 246856217] Future Scheduled 1960 Screening for malignant [facility] Test 00:00:00 neoplasm of colon Medical Ce nter (procedure) [code = 815492270] Future Scheduled 1960 Screening for malignant [facility] Test 00:00:00 neoplasm of colon Medical Ce nter (procedure) [code = 856187383] Future Scheduled 1960 Sigmoidoscopy [code = [facility] 00:[facility] Sigmoidoscopy] Medical Juan r Future Scheduled ORT - XR KNEE LEFT 4V Ordered: [employer] [facility] (CHARGE ONLY) [code = 08/25/2019 of Med icine 86759] Future Scheduled HANDICAPPED PLACARD Ordered: [employer] Test [code = NOCPT] 08/25/2019 of Medicine Future Scheduled COLON CANCER SCREENING: [facility] Test COLONOSCOPY [code = of Medic ine COLON CANCER SCREENING: COLONOSCOPY] Future Scheduled TETANUS SHOT (ADULT) [employer] [facility] [code = TETANUS SHOT of Medi cine (ADULT)] Future Scheduled BMI FOLLOW UP PLAN [employer] [facility] [code = BMI FOLLOW UP of Med icine PLAN] Future Scheduled HEPATITIS C SCREENING [employer] [facility] [code = HEPATITIS C of Medic ine SCREENING] Future Scheduled HIV SCREENING [code = [employer] [facility] HIV SCREENING] of Medicine Future Scheduled FLU VACCINE > 6 MONTHS [employer] [facility] [code = FLU VACCINE > 6 of M edicine MONTHS] Future Scheduled GEL ONE PROC INJ [code 1 Occurrences [facility] College Test = 41904] starting of Medicine 08/25/2019 until 08/25/2020 Encounters Start End Encounter Admission Attending Care Care Encounter Source Date/Time Date/Time Type Type Clinicians Facility Department ID 2023-01-19 2023-01-19 Office MARCY Padilla 1.2.840.114 [id number] [facility] 11:30:00 12:19:19 Visit Brien AMBULATOR 350.1.13.21 College Y 0.2.7.2.686 of [id number] Medi radha 600 e 2023-01-19 2023-01-19 [facility] [id number] [facility] 11:48:23 11:48:23 Colleg e of Medicin e 2022-05-09 2022-05-09 Outpatient KEO [facility] [id number] [facility] 11:03:38 15:10:14 ATA [facility] [employer] [facility] [employer]in e 2022-05-09 2022-05-09 Outpatient [facility] [id number] [facility] 11:30:46 11:30:46 Colleg e of Medicin e 2022-04-28 2022-04-28 Office KEO [facility] 1.2.840.114 [id number] [facility] 11:07:45 15:59:43 Visit ATA AMBULATOR 350.1.13.21 College Y 0.2.7.2.686 of [id number] Medi radha 300 e 2022-03-27 2022-03-27 Office Mery [facility] 1.2.840.114 [id number] [facility] 10:20:00 11:22:06 Visit Brien AMBULATOR 350.1.13.21 College Y 0.2.7.2.686 of [id number] Medi radha 600 e 2022-03-27 2022-03-27 Outpatient [facility] [id number] [facility] 10:54:41 10:54:41 Colleg e of Medicin e 2022-03-18 2022-03-18 Outpatient KEO [facility] [id number] [facility] 09:05:32 23:59:00 ATA 2022-03-18 2022-03-18 [facility] [id number] 08:54:16 23:59:00 Encounter Ata [facility] 2022-03-18 2022-03-18 [facility] [id number] 08:54:16 23:59:00 Encounter Ata Marion [facility] 2022-03-18 2022-03-18 Office REVELES HARLEY 1.2.840.114 [id number] [facility] 07:42:06 15:45:17 Visit ATA AMBULATOR 350.1.13.21 College Y 0.2.7.2.686 of [id number] Medi radha 300 e 2022-03-18 2022-03-18 [id number] 00:00:00 00:00:00 Orders Ata SandhuJaquan [facility] 2022-03-18 2022-03-18 Outside Keo [facility] [id number] 00:00:00 00:00:00 Orders Ata BJaquan [facility] 2022-02-27 2022-02-27 Office HARLEY Padilla 1.2.840.114 [id number] [facility] 10:20:00 10:36:27 Visit Brien AMBULATOR 350.1.13.21 College Y 0.2.7.2.686 of [id number] Medi radha 600 e 2022-02-12 2022-02-13 [facility]patient [facility] [id number] [facility] 07:57:00 11:20:00 BRIEN 2022-02-12 2022-02-13 [facility] [id number] 07:57:00 11:20:00 Encounter Brien [facility] 2022-02-12 2022-02-13 [facility] [id number] 07:57:00 11:20:00 Encounter Brien Spangler [facility] 2022-02-12 2022-02-12 Outpatient [facility] [id number] [facility] 07:57:00 23:59:00 Estephanieg michael of Medicin e 2022-02-12 2022-02-12 Surgery [facility] [id number] 12:15:00 14:45:00 [facility] 2022-02-122022-02-12 Surgery Mery, [facility] [id number] 12:15:00 14:45:00 Brien [facility] 2022-02-12 2022-02-12 Anesthesia Constance Reardon [facility] [id number] 11:42:00 13:31:00 Event Y[facility] 2022-02-12 2022-02-12 Anesthesia Constance Reardon [facility] [id number] 11:42:00 13:31:00 Event Lomeli [facility] 2022-02-08 2022-02-08 Letter SANA Garcia 1.2.840.114 [id number] Univers 00:00:00 00:00:00 (Out) Soren JAMES 350.1.13.10 i ty [facility] 4.2.7.2.686 Juan as [id number] [address] 2022-02-07 2022-02-07 Laboratory Only, Ang Db Test [facility] 1.2.8 40.114 [id number] Univers 10:00:00 10:15:00 Only Anup Yovany [facility].13.10 [facility] 4.2.7.2.686 Juan as FLORY?BLEA [id number] MEDICAL OFFICE BUILDING 2022-02-07 2022-02-07 Outpatient R ANUP [facility] [id number] Univers 10:00:00 10:00:00 YOVANY galindo [facility] 2022-01-31 2022-01-31 Outpatient EL [facility] [id number] [facility] 12:10:14 23:59:00 2022-01-31 2022-01-31 [facility] [id number] 10:00:00 23:59:00 Encounter [facility] 2022-01-31 2022-01-31 [facility] [id number] 10:00:00 23:59:00 Encounter [facility] 2022-01-31 2022-01-[address] [facility] [id number] [facility] 00:[facility] 00[facility]00 [facility] 2022-01-31 2022-01-[address] [facility] [id number] [facility] 00:[facility] 00[facility]00 [facility] 2021-12-19 2021-12-19 Office MARCY PADILLA 1.2.840.114 [id number] [facility] 07:25:48 09:32:58 Visit BRIEN AMBULATOR 350.1.13.21 College Y 0.2.7.2.686 of [id number] Medi radha 600 e 2021-12-19 2021-12-19 Outpatient [facility] [id number] [facility] 08:11:44 08:11:44 Modesta rodriguez of Medicin e 2020-11-01 2020-11-01 Outpatient [facility] [id number] Univers 15:40:00 15:40:00 [facility] 2020-10-11 2020-10-11 Outpatient Khalida SEWELL, [facility] [id number] [facility] 17:30:00 17:30:00 MARVEL [facility] 2019-08-25 2019-08-25 Office MARCY Padilla 1.2.840.114 [id number] [facility] 09:44:26 12:05:42 Visit Brien AMBULATOR 350.1.13.21 College Y 0.2.7.2.686 of [id number] Medi radha 600 e Results Test Description Test Time Test Comments Results Result [facility] Comments RAD, SPINE, 2022-03-03 Reason for LUMBAR, COMPLETE, 6 Exam:->Lumbar WITH FLEX 09:50:00 [facility]opathy [facility] 1960 Sex: M FI NAL REPORT Radiographs of the lumbar spine seven views with bilateral obliques, flexion and extension images HISTORY: PainCOMPARISON: None available. FINDINGS:Bones:No acute displaced fracture. Osseous alignment is within normal limits. Joints:Scattered degenerative change. No osseous erosion. No pars interarticularis defects. No subluxation on the flexion or extension images. Soft tissues:The soft tissues appear unremarkable. IMPRESSION: Scattered degenerative change. No osseous erosion. No pars interarticularis defects. No subluxation on the flexion or extension images. Signed: Carlita Hines MDReport Verified Date/Time: 03/18/2022 09:50:46 Reading Location: [facility] Reading Room [address] [place] [address] Tissue Exam 2022-02-21 13:26:10 Test Item Value Reference Range Interpretation Comme nts Case Report (test code = 104) Surgical Pathology Report Case: [id number] Authorizing Provider: Brien Padilla Collected: 02/12/2022 12:34 PM MD [place] Ordering Location: [facility] OR Received: 02/12/2022 03:39 PM Perioperative Services Pathologist: Eliana Ledesma MD Specimen: Condyle,Left Knee DIAGNOSIS (test code = 3220) t3eunDOhKYVqz2kcTYRlkTQmYqRhPgSoFqBfZj p cdWMxIHtccnRmMVxlcGljOTYwMlxhbnNpXHNwbH SlP4GfcdtfNEkrGB4bOR4gmXkjjKFrkCHoCLQlS hUvu7vsn221zNDsw3mtEZVXkcatvXq3jNzxX93g x0Y5RvkfB22bkKUvZHW0XXEjKFRxoDDlRSSuGGB 6ZBCbtMUaW4hzJHQbXM1ddhkqKKlvCLxiHCMznF A6KGVetRWwX4OgGEQcBEnjPEDsqth0QdMvDd5th PMsyKdoMWjuMPPfDETbTCknRSGgIrPkL43KXIsD EXepLVYSBFAXQlXMBCQIHASTR9jKClzxhYPvDLU oNNCJP7ENK7JSVRwLAODQFeZEBNKHHE8HEAUKV8 vIBfHBDXonOY5OU1OpLc5WMTBWRRRneo70OPC3W sSes7D2GUE4HGBoPWCau1dvUKDtaIHoUbThOuHp ThHjUhhxvLZhDOZoNfRil4mlx173qACzr9uxHUX cBnR4pEBoOZEygMBtE890GXJgNAyct0rys2GsOC PnfCMgt0G3XCOYqcjwpYu2oUrvT62ub7G4LnidY 1svMOYjRYYkW5DaOI4bUAKbSvx5TFS4XRK2OLOy YAVgM3EkTS8wYLKyrUXoJOo1i2fdwRljQKYpGUD 2z3wmWHalfmHnPY0yru8wqSa2f4uxnaHcLFTuQY WegBFCSAFfQ4JvwSayIj9eoWm1yQodFlnsWEI1I er0LZ2sab19mbr5oKinAJNcyufqQjU0BPerZJKb fwzlBJh1UFhfQCWdtIV7ATWquRYsU5LeIYDgBD0 teig5ZOL5XGfrCNSfQnA8NHBwiMInCXSsgAkjJY aok935CBC2WjLrKU0sP7Asp3V2gU4beIArAJBio FQuXpPtRCFvqu8auIBqJZcjr4LrRGG3luK0cLGz rROsJQLkXcI1FNihAN4vbq32BOSaAEB4ur9zxTA cpOhtfxQdyGLlTAyoE0EwCTQzb663ZYIhY6GtSO Ywh5U2zdKwFoLaNRMhlAY6plG8YJIlYP6vqdkfo 1wjVYvdVHlqISRfwzP4ggQ7OMIauCQpI7WyrU8c HXYaFN2ujedxz6xaNFB9WOchOLCgEOB3XuEtVYG db9Ewknj6OoBpw4QoiLUkZKsyW18qc728QOIjne SzT6xjxMPhrpknpYTsgntmHLdzuvW6OXYkWUzao ivcVWAdUHsqT8nzYxTaUOGbyMadAVbhg7VaCUIq CWEoTpRmhLNfGDHlVqf3CQKedWXcZSBhQcTaA5s ogwkhFfZAJRHnf2jmR2uyxDFXyOHhE4BfIRqioj VdLXcaNGdnERPdPHX1XP24TqfiSPDzwd76 COMMENT (test code = 3359) j5qlqEOnLHHlbPT4EfEnCHDeb4ibc6HabBMlcMJ mEUyzzSJaplCith48oRS2hV03PV8xHQXwOpI4RY TczqA4Hzc1MYKpPIGzgSXlP920g2dmx2pkumIjb XF4eUtuRFQatplrYiC9MWnkPCRogzgoVPq3FTwh TGVgkRQ9PSZntKEqH8SmQIJpQC7alxr0USU1XNd iKSFrJrQ2XLAtyBNqQSNxtNneGLarz416ORM9Cj KgKPKoblSyqBwzuO8sKmUvRZHNzeXdEIShqIKbl L0wstQkbIBhv21xcIs9FiPIqy9TOQ2jj71zt7on RWj4UEVztcduo7JjMHZpBJNnbEzdAWTqk63zdIc zftYaGVXaKTNnSOLeP2FkHCK0rUQoHQOaUADtjK Sbmq8jkYEuACiiWRKjpFZrANjgXEI6 CPT Code(s) (test code = 3357) h7sviSUwEKRwjIJ8ZeZnAVIyw9uqv6MjoPHm cGF oFYnjbPTkcjWuzz70pSO6tO25UL7eMSDmDqU9OS RgpxN8Fpn6ZQUjSPXmaKAhF005v0cmm8iuzjOjg OY4uIlgMGPldozjIcE9ORpeWNUuysswCHc0RKxf BUWreBT6CRFpcLOvZ3NjOLGbDC0btwm3RLG3DKm sVGWnTyM1GDVokOAyVYFupXsgAEqip873THM2Qm AgSVIockPemFjbhM1iBmOwNDETNo1vk3njIOGiR KlwZCWeyHPxePDcMQk2AfKfGAexBIXhvf8= CLINICAL HISTORY (test code = 3356) f8ztzBEqHJLzjVW2QrPbHKMar3muj0R sdHBncGF aYBptiEMufnXarq16dZI1mC29SW9rIKLqDlN5GT HviaM7Blk4CRTjTGHisLVwD325f8ahg4algzFxg QM3dKwmFMUsjaltWqP4JIzvNAHqgueoEGo5VMnm MBQaqDK8PGZtfNEwT1KeSKFcMV2ujki6CMH0BQd dQFJqMtL7CCBiiEEvFHVfvTsyGDzeh570YCZ2Cw BhMVEhwaLzjBhuzN5xHpOgXSKKfpbvUMLdbnGaC OOgjK0gthspl2P6TN2bymTdsbr0gNIcZOccXoZy w12vPBckHAR4 GROSS DESCRIPTION (test code = h3nygZBuKCOaqMIKIQRsL5lfobCsBRAgyIEh Z3B [id number]) xrqpjBJwlBA4sCW5ohKedfKXphVFnBO8IISTpYe LpTAQfxHPvwiXkNoVvCVSwjPOzuST5BAXfRO2am pfwMHziFRpkLGFhvfU9MYHdbWPgE4AlUHXjYR5w bxwmYYL1ORtleB0owmDYWfskMa2kpCQzfPaaUiD eRqYgGYLxIEDyCWTykBthMBLeXIf6zN2ZZwqqOT T3NFHSCtsjLHNhGV3Gf8rvZRUpeVTqFGY2EZsbp FYpRARtDUBiZPa9BNIbYZuglENvNI9owZdoRyud hZzwn5GpjEVjTAciNHJvEDWqCKrkZQOhWW7PJlZ iSTL4PEj6CFRzZMk4YBm4FL2EFhAuHNBbSKF1QQ xrQELhFXz1ZPzrNQ4JXJM2DNJ2MYI9PSQ5SWCeS ELdUUYcMxIvXMVzZOJhBJbwCOnsdDUnPR3lvUmd uMOxpyLKEyJNb13kgWfbUQqlYsZtJ28tFL7hvCG kLY3CRBOmiQKUVJY3IY6oSKKQRxafdBUbWLHxvN vwUBakqX2nNQ7SOKn0xtVyELInWbExRLSeH5Mlb mVkIGZyZXNoLCBsYWJlbGVkIHdpdGggdGhlIHBh yWwaoeCvknIpKX9yDZAVOh1vNQ5eMUWvr84dhHq lWZArXCQ8AZhwZFWbkWexYvKgTPw2HLIkmmXpFL E9ApNpmUDhJx73XClhQc80WHKqIZBuH2FkV2B2Z AYtZrH9BK1hpLMkzB15SGHhYMmsYMbcr5nwvEHv Qf9tEQXzclCrB8VgqZzdQYxuAABdwzOhr7Alynz xe5QzvQivBYZenZUtfhX0pDBxZIE1lFItPFgroN ggkPClsSHpxuXsmGO1NUmaWQO6zJDsLXTtCMBrU WUpBCJirEFxOkYbeYFoS4duEOLao8E6EGNxb1A9 NM3qiWQaEO0ZSLBvtnLQOnGqRZFqZCDwkLcxjRw ywsVczPLgGOXrNQWha1NrSTcsNHAoX2UuMEXpFD BaFQ7uECBcyAUvWNSwu04li0m5mSHtt0Hig1Kzd WKqIkKyz4JyOBLsk32lBLEwFACzbcSeF5OjBXAf s9UbLuBqZWWaEID3mOzxW4AzmyHbU6CeOCSoPS7 dHsHlF37uzE1qfZexH6yqQLGmMlJJfVKjqMLurL uiONV2GIJtgaAoTOusdBdzlRIiMBZwdx64iAv9R QD6hqQ5RV9sbkCbQFYfPLNjsy4uBY1ctUSiA9C4 NFZ1aeBcT7IwJtNlINwojzRpvLPhOJBuRlLvlKN kBvOkyKRcSjIrI90teTKbULsyeDExOCKovqykLJ Xqpc16hqKsx67kOUMzuDPuF4GsMYO5nsKlGMOzV DrnCSI3WG0icKZhlT74TRCgNLPcnr65kDc7IGFq QR64PGXfMXSoCBG9RFEiBSZqnRizJLWXBNIjBQZ njoBwkCi0CRMxMYL9tJ1udaXhlaEmd4LscAg5uX JrGSQvs6eme8aneqbcJYGoAQcbzPUgD9D0jT3lW NjnZPXnJDDvCbgsEKAsNRffmLRpZF1SP1OryEax ufVZr6UjCtlsGOTiSMnCMW6CEsaaOYR6pi6uiRw zgcEwpfSoe1K6PE5gwXf3vROgBh5wmJD9oL5dTN WyNXOuCUPcacHpzIw3EFlwzU9mCZGuBnSYg2Xnk BGvQy2wBDjwudNzncWwPO46MVRpvvKnmFpoCYHt bGluZSBaYXJhIFVkZGluLCBNSFMNClxwbGFpblx jqIkoYiUumBAiEkHgdBavaA31WCZkyRBhCLF8KG 2iQYJqbhfxMNKeXUFiKMR1WLnhtM86eLIvNYEoZ QRyaLJedT1FMSKcHFQ4LAuweI17gGKzAK1FOJQl ANT3CLOijQKnZZI1ZG9hjK3KbB== MICROSCOPIC DESCRIPTION (test code = n4yzdKNpAEBgmWU8VeZiNMHep6xco7 [facility]) aGVovkIErfhBeid17kXR1aM40CT2mSDWjMoK7XZ FvufK1Quk8XHKtPCJxiSRpT728o4krw9mwnlLvl RP5pHyxMCZroxbbUjC5ZDwvQKWkyzqtYWq3LRfo NSFoyVW7MXZaqBMiI9DfKEJwEZ4pudn0YIF8QHg rZQCaNhK0GEIpeSQqLRNubIukSZtvt296HRE3Hc GsPQHkteFhoJvjaT4rSkVuSCGESCDmt1FfIMVzC HBhcn0= Gross assessment was performed at (test [facility] enter, code = 2777) Department of Pathology, [address] [place] [address], Technical component was performed at [facility] er, (test code = 2778) Department of Pathology, [address] [place] [id number], Professional component was performed at [facility] enter, (test code = 2779) Department of Pathology, [address] [place] [id number], [facility] [id number] 13:26:10 Test Item Value Reference Range Interpretation Comments Case Report (test code Surgical Pathology = 104) Report Case: [id number] Authorizing Provider: Brien Padilla Collected: 02/12/2022 12:34 PM MD [place] Ordering Location: [facility] OR Received: 02/12/2022 03:39 PM Perioperative Services Pathologist: Eliana Ledesma MD Specimen: Condyle,Left Knee DIAGNOSIS (test code = i3zwwNDsCAWix8jvHCJwgT 3220) FuZzEwMzNcZnRuYmpcdWMx IHtccnRmMVxlcGljOTYwMl yhbsVwVQHbbGQnV4Zdbuxb PNiaGE7nGL6rzXmjoARnuX RgKXUgPbXee5jxx554qWRp a4bkSYEFxbnmaIz8xJzfA1 5pd0M5NrfhS88quGXfFBM6 UXAhPCDrdUEdDLSfYEA0FD HjbILrW0epXZMxJL1msped DPjvSSjwNUGfaFF8QMGurY RkP8KmGJTnRShrDJUitfc9 LpEzSg6jkGFujJtxRYgrEH IfHOQtRCapZLRfJeQmB41F RFlMRSwgTEVGVCBLTkVFLC SQRJRNO3xRQuyslOZoSNKf ETQAN5IML8FGQXzLKMRYMd ECQZRHRE4RZLQCS5fOXmSJ ZNewJP6RA7DeZh0FUIRLNE Qzoi18JBR4TbQww3U5IFJ2 HWRpVQJzi7zsIYAnaPOcOz EwMzNcZnRuYmpcdWMxXGRl CoYlo0snr557yKGib5usXP SjGlE0hRWpLJPecNWlY603 JHPfZXeru7kqs5BiRECfpS Xmm3Q8JQJIuuxiiPl5cHri P57pr4O4DnjlY4icFQYtHS YtU3KpMI7tSBWdYrd6UYO0 RTJ0TVAaEPBhZ7BuHZ4vSR EytFKrGSd6q4mssSujRXEs WHB2z0guSRoysbQrAR3ewe 1qxBa7s7syezSsIXAyLHAc tLIZJFXdQ2TaxDgiUa4jqA t0vMkiNtkiGDP2Tyn0UJ0d jx20uaw0nUckRUMlxejdTi O3APudHYZyskhcBGy0OPkm BWCnvII7SJAfoURrN9JzGB IxCX8oxhc5KUO6PBjaZVSz CnU4HRHstBOuINXxqWovCY njn851IML2DsUlXT5lK3Yx x2N7lR8nfUFrXSCygURpWk HvWLExri6sqPIhQBvna7Iv YHH8aiI3uQVvaAUsBPKbCb Q7BQquPT5tli78BBMjOXQ9 qy1yoAQkbXerknAuyPArLH cfB5IhZPJig930YYWwT9Fk AQUew7Q3bqGyOxGxINQfrH Q0gwK4SOUtQM9qugbwj1bo JAnfHGfmXSYfqbF0ejW6LX RqyTUnK6MxcR7fXKGfDX4l gjeoh7mdVVM3ORseEKKzST I0PwKdRMUhe7Ajjof2VuNg v5OraEIeDTxfE56yp354ZP HeznHuG0gmeYWljfwavYOn njpjHAnpecT6IBUeSUfngl bgKZWdYTcnU1jvMlBcGVLq fNcxLHdsu3YjLSQdTOUnQx KohPOsEHEmNfi2FTAmsEFw WBQpRjCgA9qghartAjNQAU Xci9dfR1oyzYLNrSEmD3Sm UGhvbmUgTGluZTogODMyLT J2TT23DiqfYTXqld88 COMMENT (test code = m6euwDYsMSKeuDE1SxUgSN 3352) Jxk3pas0YieAEymUXiZDnp pKVsgoJfgt01oST5kU44LG 2aCNLcYxO3GIDwxnQ5Htn1 VYLlBPClcPWpJ403w5wjz1 mwfyFuzBP7vNxmXLIfjbey GmY9AOxmPNXodoszTCk7LT feTDGssPH8IGJoyMNeB0Yy IKCyNO6ooqu3AZD7AJonQI McQzY9VDLtsVXlLZDqlYwc EKcyf156XYL8MiCwQBAyou UwdEvbtR1fXbXpJHSNycTi XBLrvSXghH6bzmWuyLDep8 0geHl1DpUWvi2BIB8kn16p b6vvMGo6AXGluoyow1FoJJ BgSZCpsSpzPVRwi32uoYfa rsGvZJOlTFYbMHWmY1NtXA R4wYThMWCqFCAhgBTklk8z aXMgIFxwYXJccGFyZFxwYX J9 CPT Code(s) (test code m6bslMYtHCZfaXM2FhLnJX = 3356) Gus9rhk5PiuMGgzCQjGBey yGAsilSkfd47vGF3rK73XR 2iWKTpTrB3AMTfunK5Wkc3 MAEtBQTohTToH577q1kua7 qcdgPouOQ1gLexKKKmaawf PfI0JEjgMRRicwjtBFx6XI wzLKSavKK7UNEoeEDoH4Wy NUWdAH7adjp8IIH1HClrDJ IiUuP9YTAemGXrUPGvdLqj OEwpt788NVL9RfZtXRYahb LunLgxnJ1vLfNgXPMXYh4z a1ejANAsDCreONVltCAjpJ KeAYy6VlGlYSypLEDozl5= CLINICAL HISTORY (test g8jxaKJdOPJisNX8MuFhHL code = 3356) Ezx5vnx4DsrZHofUQdDXmk rTNcscOkzq39uRM2xH86XM 5hGRIkOeV7UFWdnjO9Bpe7 EWFnBMQyaXOqI311d5kiw7 yeesRggPD5tGccCQRyybug CzF0GYteNMFrxpseBLo9XL iqTEPotOB2CUWqfYOiV7Sa GJUpGQ4xomv0AZH8XRjpHK PdDbV7NPByvLIqJNPnaYqd DJzdz810TWQ6NqUoPDVtyx QisJmwrU6rNyWmBIHLtuyf WFPyaxTiDQPwrI5nwargl9 O2XD5otaCijbm1aGWwHXcb LqBlf08bTLsmISO9 GROSS DESCRIPTION (test y7noaIRjIGNovPPUWEZyS1 code = [id number]) qsxxYmVGLtcQSxF7Jsuxar YCtrXG7qVV8vwKuzlUPvrB VuPG4MYIKjUrOkWXYutWRp ykYqUsUmIJMgcNWcuYP0GL LwTX0gijjnJNnuKRpeEMGf zqA6KDVjjZAcR8YeTTArXA 4lpzxsXBF3VOzlhL6klgLP OdssYr6cjTOlqPkfTkDtBh NoYXJzZXQwXGZuaWwgQXJp RFy3qV4IFudoNCT7FTPNMb gbLDVmEI0Pq2ftLCWxeITj KVV9UVxfxEHpSZPgBTAaWZ m5TYDrZQqnaJVeJC2pmPgt ZpmdmYijx0VkiAEcXKfbBG YrSLUkZBqvWAYiNM5NJnLj CID2KDa3IRVuFQq3TNz0OL 4FUjNtOJPrKPK2EJrhRPNb AUk5DMosWJ1ZGXX4MJW5LH J5PIW7DQIrUKGxYMRoCvIp XGYgQXJpYWwgXFxmbCBcXG 6woRtgwPKkyiJIPpQWg19e iSksUPttUmOyX03sUW3vtA JpOI1YAURpjNIMVAU3YB4n MSANClxsdHJwYXJcbGluMF quoA3oSF4BBIt5bzJcKYEr MjDpVXCpT6EjfoQyQIDtOZ NoLCBsYWJlbGVkIHdpdGgg dGhlIHBhdGllbnQncyBuYW 0aHUXVYl9jDU5dGXZsg52c iFlnEONbSYM6PGklLOYcpQ agHlQmVGf4DANnwgOzKGA2 LkOxjGDxZj32PHgeRj37BC KjIBWvL5HzV8H1IYRvAtL9 XZ8akKUrcY00BSHtDFhiGN nwr5mktHFcEd5oNZBkkzXg F1LhjOenTDxfSMKyxrHej7 Rrskdbq3FvzFvwKZOiyOVe bvK3pSFpQWT0pHSoDTzguO fmxPSdqEXyfcDocRG0JHyh JSM5lRAcISEiALWtVQJuQU BvqEVbEnVgaYEpZ2djLIOg t8F9WYRno5P2CR3xiSGyZF 0KXHBhciANClRoZXJlIGFy dGljdWxhciBzdXJmYWNlIG Uzw5BlSPvbDEFtE8GiRUBd QLVaVU3uZKGhdEKbSHZvq4 2sk2t1yVNit2Qiq4KglEVn GcHpm5OzUWNfr60sJZCkYB CielUqZ0ExZZEfc9WqEwMh YOWcXFO6jPzpQ7UcakImJ3 LmGBWdOT7lUoWgT16uaM8l lHfmC9ycETEgTiHKvMCexH HdeItfWGX6DJWvdbLjFYnq vVdqxQXsTYNiww22cNh9XT T5lqT9KG7fsxYhDOWkJGYb xy0jID3xcHWcM7B4HRZ2vb RyT8AmOtScKGcbhhRbaQFq YSAwLjUgeCAyLjUgeCAxLj McL83uxIQaFXebfHNhVQWg nvmtHNBcbc40usAih53gWX LliNMwK6LpLZW4inDpIPJa AXkvRZD1BF8tjNXcvY77EX BbYYRpjm30zCf6VNZsNH20 LRBhKDSzCMT5YPTpGVBenO kuICBSZXByZXNlbnRhdGl2 GLQtDFV9aQ6cixZxscFgj0 PdvRm6kIKlWWAna7wmy9jh cvigGTBsDDqsfGCsR7I2iY 9uIGluIEExLUEzLlxwYXIg MWticDMmJE2UJ5PmhQhpjy KOc9GwBsjdMCJfWRyUXO7X YgpzZAG8rt0cbBlyyaHmau Teg2Q7SB7hoWe0eAQxWq8a aTH0gQ5xUNCvFWWaAGNfmr QueGs6AKxepV5bLYGyYwXB t7QvjWMnEw6vMMncdxCdhm VnAL72RZKivoWywSsoVHBf bGluZSBaYXJhIFVkZGluLC BNSFMNClxwbGFpblxlcGlj McDfnYFzNoQoaDuhpX68VF AclNDaIZV5XA0gCKPhfwlv OMCaYRGgZKH0NJhntG68uH SrALFhEGVsfXCcrR1GLHMp ABL1TUgswJ30dNVeLE4NRY LqJEQ2ZMNlkPZgWBD6HB6n fQ0KfQ== MICROSCOPIC DESCRIPTION j3fhkYEzRXXobNE1VqVeKN (test code = 3371) Qrk1sds1SnqQLpgASzZRyg bTQnexZqkz15mTR1oN36LN 9rJOWfJjX4XACzpfY7Ypo6 IFJcUFTsiJPjQ618b1aal1 bnufGykDC4dGnaCXBqvdzi ScB5BMqnJOHmklwtHIn3HT rxRJPhaCJ2OVBgcGSwS8Ct ASZuUT8prjw1UQV2PWfdGQ SnAsD4UFAynVHyLCTtiLke UPlsb533WRL7SzFkMYUbqo JywLtrqL4rRlKuRJSCFSVx e5BmITCjGESvnc3= Gross assessment was [facility] performed at (Formerly [facility], = 2777) Department of Pathology, [address] [place] [address], Technical component was [facility] performed at ([facility], = 2778) Department of Pathology, [address] [place] [address], Professional component [facility] was performed at ([facility], code = 2779) Department of Pathology, [address] [place] [address], [facility] Center[facility] [id number] 13:26:10 Test Item Value Reference Range Interpretation Comments Case Report (test code Surgical Pathology = 104) Report Case: [id number] Authorizing Provider: Brien Padilla Collected: 02/12/2022 12:34 PM MD [place] [facility] Received: 02/12/2022 03:39 PM Perioperative Services Pathologist: Eliana Ledesma MD Specimen: Condyle,Left Knee DIAGNOSIS (test code = l4gejMWrEPJjm4dxAUShnC 3220) FuZzEwMzNcZnRuYmpcdWMx IHtccnRmMVxlcGljOTYwMl cziuGxWLDwbNAfD6Ijiilm DXdbVP4gTQ7ztQsceDBgjD XfQJCnBlZdh2ldk593nBVr u4qnVNHDtrskzPz4rNbwR1 4eo6V0KupsC92mbUFrROE9 JDYyVIYedQDxKJVmYPA5FG JjvMTbW6qtJLPsMW8tcood OMdgZGejRRIseNO1HYKwgJ KsG7XhZXBbGUvzIWTdkfr7 BnVyVi5wgVKrdIxoJGdaMT NaNJDlFTesCWChEmPpF07B RFlMRSwgTEVGVCBLTkVFLC RTZZXSH5jLTjfkmOWmRAXh ACXIX7HRD4TAOGlQGPZNDa ETLLKARD0EYKGFC8cDQtEJ RJjsTH9KX1ZkCa0QHOFMJX Iyrc67XSH4EmAha6N8FAB7 HBGoCGFbq0udIDUimIHpEc EwMzNcZnRuYmpcdWMxXGRl QbGbi6dpb288rWVmo8juBD BuTdP2jPTgOXTegDGxU362 GSJuBYxte3vka8KyPWFazI Ohl8F3YXMYxbmcaFs0cAul Y46ij3K1WtmwT2ocUEDoRK XhB5RaFS2wTZJgAlv8DEY0 GQI6QSYyXEHwG4CkWL7aAX TtwBEqAAt2w2clwGbgUSEj RBE7i6wgPXivqeUjAD9soy 4smWc2o8dkmdWlAOLwVIEx aZMSGEHnZ6VbbFvzOd6vaQ o9wOkbCsbpSCN8Kwh9LS0m xb58pha8fNdcOYQhtxepCs G0BBzxCWHmevqsICc0PKcj LGGgeLD3JJMkeJQlL0AeYO ObJX0dxng1BFG6SRavGCNf QvZ3WNYrqEZrOCIfkYfbUE akg997LMS2HpSuNP7rG9Pd t7R1dI5uvKPgQCYiqBIpCb WoFTPgbs3koTWyKZbrv9Yr ZBA6nbH1uIBwjZGnEHKjZo F4COprEK2hbe10EGTeCVC0 pj3fzBDceDyikmJtiFJzPS uxG8FeCZDud971ZKQmZ3Cq XWMrk8H3ftPnTlRrCEKtyF X8agS8VFRpOD9ixvrzv7hs QVutISipSWTkyzL1mbU4CJ RhgBCoY7OtzY3fLNKiQN3q tqsrf2foANV9HMwcAFZlBM M0HaSkEWCfm8Xsgzq5TiGf j8NxpJBfSZnrD27bt049RQ VrxkKpO5jxbEYoitgyjYDe rsdaESlmrpG9SAKwWGtabd rzEMJjLHcwK2wsCiClDCUa pUqlALntc8UdIUNoZRXbVa QopDDiBRIjFqq1HVLsuLYv WIEtTrLjX0mtfzpsDcEYNX Gaj9keQ5mlyFJLrSIaD8Dj UGhvbmUgTGluZTogODMyLT A0ZN89NoruYMUxtc12 COMMENT (test code = a3xatUOsCHYuyZC4PdLqEZ 6747) Xpd8zpu6EioDKjtQYzANtb eLBvabLplr83wYX2aA95AP 8yWSDqDwC4FIWdusV1Efk7 LLGcFBBitIZtH740v4uqg5 fyudGgyQN9bTlyVAXfmbbs EbL4TItbALTiyyjxXTs7XN vsYMYhnWO5SUPtzXZiB6Fv XRDsSY1atnf7MHM0KSnsLB TmRfD5KAQrvTPvRLDbxWch VJyjo298XSQ1PkPkHVShej ZjjLesbP8zVuEvIIQPjdYe WSEvnOUjpX9ifjDfcTXhr6 9zaZq2ScKVps1NGC8do67f n2fcCSn3AYKpjtbus3UkSP MaQTXagKqiFDVim27tqSau qkUoQKApMAUhOXIoI4PlQK C4jBXjBBFgRDJlyJTjxw7j aXMgIFxwYXJccGFyZFxwYX J9 CPT Code(s) (test code n4jitWMwKUMkiXB2ZmHiSW = 3357) Rae3iaa0CqbQShlWMaOPyq iTSukdIinb63cUM6eU48PQ 9uVHYuSmS2QYWxjrL4Irr1 MHSkAQYkcDXjU661k9nqc0 hajoIvkXR8gGxnEXLpzaco HzO5CLafKQHhamvlMXx2VE gwHTJwhLJ4WSIcpWNpR8Va AELjUY6cxjs4CCH5LOkdFC FdJsN0UGPqaNQiVSKldHdm UMbza596MQY2VtJnDEUupi SwvUfaiR1mNnQaEVKWMp0v p2iyKPZsRXunQNImjBKyhP NzSSg4XzDmUBawKTWvve9= CLINICAL HISTORY (test v7mvrTVcJRNlyBU6HsYfLN code = 3356) Tdy9gys8JsdADztQAmPOpd iQPsvaOwyd17uRI9tJ45XK 8tFFEsThM7HQCrzjJ7Xnl7 KBYmFMBphRXgQ017l5ewm7 gxiwDomFO4vYxiCKPhtvot CsJ2SFsxXHYernhrJQr5IB skWSMtbHN5LRRrpFOcK0At DRNiVV1uujy7PJE3IYelIJ AyLtY8JWSmuWIaVXYqiVtj VPbfk617FUP5QzOnKRNeho YnkHorfS8iDiFdUOWUvivt BTOxncRhQUUzsS8pbbfdk4 T4YA5iebXaege4eCWdGRgg QwArf02kATqsROQ4 GROSS DESCRIPTION (test d5eugPIvKTBclSKPHRIvP9 code = [id number]) kjceXjSDJcqKJyG9Qheiqu YAjrIU2gTW5gdSvbaTLbwI EzCD7TXQMfFnWbZGFjfYNn vgRrZzFzZUHygSRqnRA1MW QaCH8knawqQNmdLOssFWFw anB1ZSFuiJWjV0KpDOWkSE 2unfqxIBP7BNpqnT5gknND PdoqJz5goFFelSexZuMlEv NoYXJzZXQwXGZuaWwgQXJp DQr8uG8ITixwUEF5WQYGHg wbSVWeFV1Uy1uxPFJutVTr YXC0XKmbfNJhRUSiIGHrTV b2LPVnSNwjmIAzOW8zrJqw EpswdXcfx4ZbeCRxSYorAG NrYKGfNLnqSVMbZX6ZMcRq BOY7VIz0USJoFKg8QIp1XO 0UDbXuESTxDSE6HDxwPQFd OAm1NMlhUJ0WSLT0HSH5VS X0RDI9BGPdBPRhRJImDsUz XGYgQXJpYWwgXFxmbCBcXG 9hiRqksVTudwMXHkCFh55b mGezGLurQlRmT52tAX4ymL EyJR6CLBAikEDCIFB8IX1l MSANClxsdHJwYXJcbGluMF metL2uAZ2SYAd4tnMhSXDi NmJrGYXuD6JmvvYrROUjMA NoLCBsYWJlbGVkIHdpdGgg dGhlIHBhdGllbnQncyBuYW 7aNXTMQt9wJF5uYKPct09f iHbdAGJqIDJ4CPghZRSdiE aaYiDdMVe4WVWallSmEZA6 JpFlnCZyHb84FPadPs50QT TsWHBaJ4CeC3J9LKKsElP7 QC0dtJWewV32VLGeAQujHP gnh2jlsREdXj1uMAJbecYv E8ZilLhzVWkeCDSsrdBbr2 Tmylgkm8EedIaqYBWvdUHq gfX1fQVdVSS6kIEvQWlboV nrcPEclSDomxNrpCY4GOsu HWO5jJLcTOFlCZJjQPFiYA ZdlZTjRdRijDInM1ucKLGr y3I2ZUPjf5Y4HB5hkTDzND 0KXHBhciANClRoZXJlIGFy dGljdWxhciBzdXJmYWNlIG Fdq6HhYLvtCOJtH5AcEUJk TOKbVX8fDFBrzXLtPGCam0 1wf2l6dGKyx7Uvi3KliSIg LkDtf9RtUCUeo78iMUCzWY CqqqSkN7KwFDNuh1XoEqOq RZJoXZZ7zHyhM3FkjyWwX6 IsBJKsXZ1gWrAlE95mkX8l wVpoK2puCICaXfLWlPPepC VihHurKSU8SSMflzLvLUih sUsqfBCvQARmta22aWx8LR K3yiM0YK1dzzElCLFlNOMg uh1wZA2vwXWpT0H4BJY6ci TkL8WjTuZoXUjjzjEzgPNo YSAwLjUgeCAyLjUgeCAxLj YjO55fhYIvKGvbtEBgXIBb xdsvGEWqjz17xuNvx19mOI VhlBQkQ8SzKIS4tbYxRAXr CLtaHFI2UG8luNIfuD69KL OjSWOotj18zVn5JRRcPL09 SAUcSKQtDZU5XJQmHOJhiA kuICBSZXByZXNlbnRhdGl2 IUDaPPK4zQ3jtwDzwpOyh9 WqjYt6kADhFHPbm6imh4pi embxTVPaOYebkGSjG2A8dM 9uIGluIEExLUEzLlxwYXIg BKerbBVsHU9XB7FxnNxmkb XSf2PrCvszIGGsPXrCEU1Q XosuJQZ3yx4elZnofmAvcp Oan3K8LB5phBa8hUSjEv5n iLB0bO9yFQNhAQXoDDWwkj QlaMe3TPauhA0aLRMpVxFG i8ZqqEVxNh1jXSvbftXtnh RbKS64MMZeyiHzrIbbEOZk bGluZSBaYXJhIFVkZGluLC BNSFMNClxwbGFpblxlcGlj WiRbvUTiRwHvoDelyQ64WF XhoAIzPRB5DA1pCRHlmhxy YFUkBNLuMEV4BRipxN75jP DiTJJfRNBjjVUrpZ0UURWc JLN1PDjofS44aYIcLV2BRV HvBII0ANInuAKqZFB0AR2j fQ0KfQ== MICROSCOPIC DESCRIPTION w0dvoZKwTQOmfTI7WvQlNH (test code = 3371) Bun3zcj6YqpGIyjTApPRfx lMKkezMnus01tCJ9rM32NZ 1oGVJwYtR4KJUhhiU2Pwk5 YYAjGMDfvWJbC802m2mjy2 csojBarLA3rZnhGGQtgurf NgK4JMdzJGFoehahERq6PV egOKUrsQT6HNWvdTZkR5Ar HHNqDA8jzwt5IGD6PTqdQV HmGtV7KKVprUNeBQGblFga QEzcr726JGX7MfWnNAStaq YxoUqlrE9qVrFfIDCNQUZy f4JfIOCcNZUtkf6= Gross assessment was [facility] performed at (test [facility], = 2777) Department of Pathology, [address] [place] [address], Technical component was [facility] performed at ([facility], = 2778) Department of Pathology, [address] [place] [address], Professional component [facility] was performed at ([facility], code = 2779) Department of Pathology, [address] [place] [address], [facility] CenterTISSUE [id number] 13:26:10Surgical Pathology Report Case: [id number] Authorizing Provider: Brien Padilla Collected: 02/12/2022 12:34 PM MD [place] [facility]: 02/12/2022 03:39 PM Perioperative Services Pathologist: Eliana Ledesma MD Specimen: Condyle,Left Knee CONDYLE, LEFT KNEE, EXCISION: - OSTEOARTHRITIS WITH OSTEOCHONDRAL LOOSE BODIES Signing Pathologist Direct Phone Line: [phone] signed by Eliana Ledesma MD on 02/21/2022 at 1:26 PMIntradepartmental consult: kindly reviewed the slides on this case and agree with the diagnosis [id number] primary osteoarthritis, left kneeA. Condyle,Left Knee. Received fresh, labeled with the patient'sname, MRN and "condyle, left knee" is a 15.0 x 12.5 x 3.8 cm aggregate of parker-yellow to ferro-white bone and cartilage consisting of the epicondyles, tibial plateau and patella with up to 0.5 cm of attached soft tissue.There articular surface displays focal areas of eburnation with osteophytic formation. The articular surface cartilage ranges 0.1-0.6 cm in thickness. The medullary bone displays, parker-white to parker-red, heterogenous cut surfaces. There is a 0.5 x 2.5 x 1.0 cm parker-white, ovid porous bone, bisected to reveal a parker-yellow to parker-white center (1.0 x 0.5 cm). Photoengraving Finisher sections are submitted, following decalcification in A1-A3.Section Code:A1-A2: Eburnation and osteophytic formation, representativeA3: Porous bone, representativeDONOVAN Lestererformed [facility], Department of Pathology, [address] [place] [address], [facility], [facility] of [facility], [address] [place] [address], [facility], [address] [facility], [place] [address], QZSHB METABOLIC PANEL 2022-02-13 05:03:15 Test Item Value Reference Range Interpretation Comments SODIUM (BEAKER) 139 meq/L 136-145 (test code = 381) POTASSIUM (BEAKER) 4.3 meq/L 3.5-5.1 (test code = 379) CHLORIDE (BEAKER) 108 meq/L 98-107 H (test code = 382) CO2 (BEAKER) (test 28 meq/L 22-29 code = 355) BLOOD UREA NITROGEN 11 mg/dL 7-21 (BEAKER) (test code = 354) CREATININE (BEAKER) 0.92 mg/dL 0.57-1.25 (test code = 358) GLUCOSE RANDOM 102 mg/dL 70-105 (BEAKER) (test code = 652) CALCIUM (BEAKER) 8.5 mg/dL 8.4-10.2 (test code = 697) EGFR (BEAKER) (test 84 mL/min/1.73 ESTIMA OLAF GFR IS code = 1092) sq m NOT ACCURATE CREATININE CLEARANCE IN PREDICTING GLOMERULAR FILTRATION RATE . ESTIMATED GFR I S NOT APPLICABLE FOR DIALYSIS PATIEN TS. HEMOGLOBIN AND [id number] 04:43:30 Test Item Value Reference Range Interpretation Comments HEMOGLOBIN (BEAKER) (test code = 15.6 GM/DL 13.7-17.5 410) HEMATOCRIT (BEAKER) (test code = 48.2 % 40.1-51.0 411) RAD, KNEE, 1 OR 2 VIEWS, [id number] 14:42:00AP and LateralReason for exam:- >post opShould this be performed at the bedside?->Yes [facility] : 1960 Sex: MFINAL REPORT Exam: Left knee two views History: Postoperative evaluation Comparison: None. Findings: See impression Impression: Postoperative radiograph of a left total knee arthroplasty with intact components. No complication. Signed: Satnam Marin MDReport Verified Date/Time: 02/12/2022 14:42:31 OVA AND PARASITES WITH TRICHROME [id number] 20:08:22 Test Item Value Reference Range Interpretation Comments O AND P NEGATIVE NEGATIVE CONCENTRATE #1 (test code = 329800) O AND P TRICHROME NEGATIVE NEGATIVE #1 (test code = 576839) O AND P TEST NOT NEGATIVE NO SPECIMEN CONCENTRATE #2 PERFORMED RECEIVED FOR (test code = TESTING. CHARGE S 458434) DELETED. O AND P TRICHROME TEST NOT NEGATIVE NO SPECIM EN #2 (test code = PERFORMED RECEIVED FOR 310624) TESTING. CHARGE S DELETED. O AND P TEST NOT NEGATIVE NO SPECIMEN CONCENTRATE #3 PERFORMED RECEIVED FOR (test code = TESTING. CHARGE S 941733) DELETED. O AND P TRICHROME TEST NOT NEGATIVE NO SPECIM EN #3 (test code = PERFORMED RECEIVED FOR 620186) TESTING. CHARGE S DELETED. UNLESS OTHERWISE INDIC ATED, ALL TESTING PERFORMED [facility], [id number] [place] [address] DIRECTOR: TAMIR BOLDEN M.D. CLIA NUMBER [id number] [facility] [place] [id number] STOOL CULTURE, NO [id number] 11:12:40SPECIMEN NUMBER: [id number] STOOL CULTURE, NO SENS SPECIMEN NUMBER: [id number] SOURCE: STOOL REPORT STATUS: FINAL FINAL REPORT: 11/03/2021 NORMAL ENTERIC PAULA RECOVERED. NO SALMONELLA, SHIGELLA, CAMPYLOBACTER, AEROMONAS OR PLESIOMONAS CULTURED.HEMOGLOBIN A1c 2021-11-01 08:49:08 Test Item Value Reference Range Interpretation Comments HEMOGLOBIN A1c (test code = 55201) 5.0 % 4.2-5.6 CBC W/AUTO DIFF WITH [id number] 07:55:14 Test Item Value Reference Range Interpretation Comments WBC (test code = 7.8 K/UL 3.5-11.0 1001) RBC (test code = 5.00 M/UL 4.50-6.10 1002) HEMOGLOBIN (test code 15.3 G/DL 13.5-17.0 = 1003) HEMATOCRIT (test code 44.0 % 40.0-51.0 = 1004) MCV (test code = 88.0 fL 80.0-99.0 1005) MCH (test code = 30.6 PG 25.0-33.0 1006) MCHC (test code = 34.8 G/DL 31.0-36.0 1007) RDW (test code = 13.8 % 11.5-15.0 1038) NEUTROPHILS (test 61.7 % code = 1008) LYMPHOCYTES (test 24.9 % code = 1010) MONOCYTES (test code 9.0 % = 1011) EOSINOPHILS (test 3.4 % code = 1012) BASOPHILS (test code 0.6 % = 1013) IMMATURE GRANULOCYTES 0.4 % (test code = 1036) NUCLEATED RBCS (test 0.0 /100 WBC'S See_Comment [Aut omated code = 1065) message] The sy stem which generated this result transmitted reference range : 0.0. The refere nce range was not u sed to interpret th is result as normal/abnormal . PLATELET COUNT (test 179 K/UL 130-400 code = 1015) ABSOLUTE NEUTROPHILS 4.79 K/UL 1.50-7.50 (test code = 1066) ABSOLUTE LYMPHOCYTES 1.93 K/UL 1.00-4.00 (test code = 1067) ABSOLUTE MONOCYTES 0.70 K/UL 0.20-1.00 (test code = 1068) ABSOLUTE EOSINOPHILS 0.26 K/UL 0.00-0.50 (test code = 1040) ABSOLUTE BASOPHILS 0.05 K/UL 0.00-0.20 (test code = 1069) ABS IMMATURE 0.03 K/UL 0.00-0.10 GRANULOCYTES (test code = 1020) ABS NUCLEATED RBCS 0.00 K/UL 0.00-0.11 (test code = 22245) TSH, THIRD [id number] 06:13:16 Test Item Value Reference Range Interpretation Comments TSH, THIRD GENERATION (test code 1.710 UIU/ML 0.400-4.100 = 2821) PSA, [id number] 06:13:16 Test Item Value Reference Range Interpretation Comments PSA, TOTAL 0.42 NG/ML See_Comment NOTE: Methodol ogy is Jose Daniel (test code = Key Electroch emiluminescence 2608) Immunoassay tra ceable to WHO reference stand meka 96/760. [Automated mess age] The system which generated this result transmitted ref erence range: <=4.00. The ref erence range was not used to int erpret this result as michael l/abnormal. COMPREHENSIVE METABOLIC [id number] 04:26:06 Test Item Value Reference Range Interpretation Comments GLUCOSE (test code = 88 MG/DL 70-99 2216) BUN (test code = 11 MG/DL 8-23 2207) CREATININE (test 0.99 MG/DL 0.80-1.40 code = 2214) eGFR (2020 CKD-EPI) 87 ML/MIN/1.73 >60 (test code = 62512) CALC BUN/CREAT (test 11 RATIO 6-28 code = 2235) SODIUM (test code = 145 MEQ/L 961-598 2873) POTASSIUM (test code 3.9 MEQ/L 3.5-5.4 = 2227) CHLORIDE (test code 106 MEQ/L 95-107 = 221) CARBON DIOXIDE (test 27 MEQ/L 19-31 code = 2206) CALCIUM (test code = 9.7 MG/DL 8.5-10.5 2208) PROTEIN, TOTAL (test 6.8 G/DL 6.1-8.3 code = 2229) ALBUMIN (test code = 4.4 G/DL 3.5-5.2 2200) CALC GLOBULIN (test 2.4 G/DL 1.9-3.7 code = 2240) CALC A/G RATIO (test 1.8 RATIO 1.0-2.6 code = 2234) BILIRUBIN, TOTAL 0.9 MG/DL See_Comment [Automated message] (test code = 2207) The syste m which generated this result transmit olaf reference range : <=1.2. The refe rence range was not u sed to interpret th is result as normal/abnormal . ALKALINE PHOSPHATASE 102 U/L 40-123 (test code = 2204) AST (test code = 15 U/L 50 2217) ALT (test code = 19 U/L 50 2218) LIPID [id number] 04:26:06 Test Item Value Reference Range Interpretation Comments CHOLESTEROL (test 150 MG/DL <200 code = 2210) TRIGLYCERIDES (test 181 MG/DL <150 H code = 2232) HDL CHOLESTEROL (test 38 MG/DL >39 L code = 2220) CALC LDL CHOL (test 84 MG/DL <100 NOTE: C ALCULATED LDL code = 2237) IS BASED ON COLLIN-GARVIN METHOD WHICHINCLUDES ADJUSTABLE TRIGLYCERIDE:VL DL CHOLESTEROL RAT IO.THIS FACTOR VARIES B Y MEASURED TRIGLY CERIDE AND NON-HDLCHOL ESTEROL CONCENTRATIONS WITH INCREASED CALCU LATED LDL SEENIN HIGH ER TRIGLYCERIDE OR LOWER NON-HDL SPECIME NS. FOR MOREINFORMATION , SEE CLIENT ANNOUNCE MENT AT [email or web address] RATIO LDL/HDL 2.21 RATIO <3.55 (test code = 2238) CT, MAXILLOFACIAL AREA, [id number] 13:05:00FINAL REPORT History: Chronic sinusitisComparison studies: None Technique: Axial images [...] bilaterally.Turbinates: No martin bullosa.Rosio cells: None Lamina papyr acea: Intact.Cribriform plates: Asymmetric, approximately 8.5 mm on the right and 7 mm on the left globe the level of the fovea ethmoidalis.Olfactory recesses: ClearOptic canals: Not dehiscentOnodi cells: NoneInternal carotid arteries: Not is not. Sphenoid sinuses: Dominant right sinus. The lateral rec esses are not aerated. Orbits: No abnormalities.Bones: No [...] MDReport Verified Date/Time: 02/22/2019 13:05:06 Reading Location: [facility] Reading Room - B01.626
[2023-01-21 20:42] LABS: Absolute Lymphocytes (CBC) 1.5 K/uL (0.7-4.9); Hematocrit 55.4 % (39.6-49.0); Lymphocytes % 17.8 % (15.3-44.8); MCV 88.6 fL (80-100); MPV 7.7 fL (7.6-11.3); RBC Red Blood Cell Count 6.25 M/uL (4.33-5.43)
--- NOTE | 2023-01-21 20:45 | RAD REPORT ---
EXAM DESCRIPTION: Jocy Single View01/21/2023 8:33 pm CLINICAL HISTORY: DYSPNEA COMPARISON: Chest Pa And Lat (2 Views) dated 08/05/2018; Chest Pa And Lat (2 Views) dated 07/02/2018 TECHNIQUE: Portable AP view of the chest. FINDINGS: The lungs are clear. Left basilar atelectasis, stable. Decreased inspiratory effort limits evaluation. No pneumothorax or effusion. The cardiomediastinal contours are unremarkable. IMPRESSION: No acute cardiopulmonary process.
[2023-01-21 20:47] LABS: Protime INR 0.98
[2023-01-21] MEDS ORDERED: METOCLOPRAMIDE 10 MG/2mL INJ ONE (20:49)
[2023-01-21] MEDS ORDERED: KETOROLAC 30 MG/ML INJ ONE (20:49)
[2023-01-21] MEDS ORDERED: DIPHENHYDRAMINE 50 MG/ML VIAL ONE (20:49)
[2023-01-21] MEDS ORDERED: NA CHLORIDE 0.9% 1,000 ML ONE (20:50)
[2023-01-21 20:52] LABS: SARS-CoV-2 Antigen Rapid Res Negative (Negative)
--- NOTE | 2023-01-21 21:04 | RAD REPORT ---
EXAM DESCRIPTION: CT - Head Brain Wo Cont - 01/21/2023 8:50 pm CLINICAL HISTORY: new onset headache COMPARISON: No comparisons TECHNIQUE: Noncontrast head CT images were obtained without IV contrast. Multiplanar reformats were generated and reviewed. All CT scans are performed using dose optimization technique as appropriate and may include automated exposure control or mA/KV adjustment according to patient size. FINDINGS: No intracranial hemorrhage, mass, or edema. Midline structures are unremarkable. Normal ventricular caliber for age. Man-white matter differentiation is preserved, without evidence of acute infarct. No abnormal extra- axial fluid collections. Mastoid air cells and visualized portions of the paranasal sinuses are clear. No acute bony findings. IMPRESSION: No evidence of an acute intracranial process.
[2023-01-21 21:07] LABS: Albumin 3.4 g/dL (3.4-5.0); Bilirubin Direct 0.2 mg/dL (0-0.2); Bilirubin Indirect, Calculated 0.5 mg/dL (0.2-0.8); Bilirubin Total 0.7 mg/dL (0.2-1.0); C-Reactive Protein 7.28 mg/L (<3.00); Potassium 3.9 mEq/L (3.5-5.1); Protein, Total 6.5 g/dL (6.4-8.2); Troponin High Sensitivity 5.3 pg/mL (<58.9)
[2023-01-21 21:46] LABS: Thyroid Stimulating Hormone 2.8 uIU/mL (0.358-3.740)
--- NOTE | 2023-01-21 21:50 | ER ---
Nurse's Notes [facility] Name: Allen Hardy Age: 62 yrs Sex: Male : 1960 Arrival Date: 01/21/2023 Time: 20:05 Bed 6 Private MD: Diagnosis: Episodic tension-type headache;Dyspnea, unspecified Presentation: 01/21 20:14 Chief complaint: Patient states: A couple of hours ago i got a sudden headache with kd3 dizziness and blurred vision and shortness of breath. this has happened to me before and my doctor ordered a ct angio of my head and neck but i missed the appointment. Coronavirus screen: Vaccine status: Patient reports receiving the 2nd dose of the covid vaccine. Ebola Screen: No symptoms or risks identified at this time. Initial Sepsis Screen: Does the patient meet any 2 criteria? No. Patient's initial sepsis screen is negative. Does the patient have a suspected source of infection? No. Patient's initial sepsis screen is negative. Risk Assessment: Do you want to hurt yourself or someone else? Patient reports no desire to harm self or others. Onset of symptoms was January 21, 2023. 20:14 Method Of Arrival: Ambulatory kd3 20:14 Acuity: TEE 3 kd3 Triage Assessment: 20:17 Headache History: The patient has had previous headaches and this one is similar to kd3 previous episodes. General: Appears uncomfortable, Behavior is calm, cooperative. Pain: Complains of pain in headache Pain currently is 8 out of 10 on a pain scale. Pain began suddenly, Also complains of inability to concentrate. Neuro: Level of Consciousness is awake, alert, obeys commands, Oriented to person, place, time, situation. Historical: - Allergies: 20:17 No Known Allergies; kd3 - Immunization history:: Adult Immunizations up to date. - Social history:: Smoking status: unknown. - Family history:: not pertinent. Screenin:14 [facility] ED Fall Risk Assessment (Adult) History of falling in the last 3 months, jj7 including since admission No falls in past 3 months (0 pts) Confusion or Disorientation Yes (5 pts) Intoxicated or Sedated No (0 pts) Impaired Gait No (0 pts) Mobility Assist Device Used No (0 pt) Altered Elimination No (0 pt) Score/Fall Risk Level 0 - 2 = Low Risk Oriented to surroundings, Maintained a safe environment. Abuse screen: Denies threats or abuse. Nutritional screening: No deficits noted. Tuberculosis screening: No symptoms or risk factors identified. Assessment: 20:14 General: Appears in no apparent distress. uncomfortable, Behavior is calm, cooperative, jj7 appropriate for age. Pain: Denies pain. Neuro: Reports dizziness. Vital Signs: 20:14 Temp 98. 6(O); Pulse Ox CT r% ; Weight 136.08 kg; Height 6 ft. 4 in. ; kd3 20:18 BP 127 / 90; Pulse 103; Resp 20; Temp 98.6(O); Pulse Ox 94% on R/A; kd3 21:16 BP 111 / 89; Pulse 94; Resp 18; Pulse Ox 96% ; jj7 20:14 Body Mass Index 36.52 (136.08 kg, 193.04 cm) kd3 Rahul Coma Score: 21:46 Eye Response: spontaneous(4). Motor Response: obeys commands(6). Verbal Response: sp4 oriented(5). Total: 15. 21:56 Eye Response: spontaneous(4). Motor Response: obeys commands(6). Verbal Response: rv oriented(5). Total: 15. NIH Stroke Scale Scores: 21:46 NIHSS Score: 0 sp4 ED Course: 20:10 Patient arrived in ED. ag3 20:11 Jamari Larios MD is Attending Physician. sp4 20:11 Michael Cano RN is Primary Nurse. jj7 20:14 Patient has correct armband on for positive identification. Bed in low position. Call jj7 light in reach. Side rails up X2. Adult w/ patient. Warm blanket given. 20:14 No provider procedures requiring assistance completed. jj7 20:17 Triage completed. kd3 20:17 Arm band placed on right wrist. kd3 20:30 Inserted saline lock: 20 gauge in right antecubital area, using aseptic technique. jj7 Blood collected. 20:35 XRAY Chest (1 view) In Process Unspecified. EDMS 20:38 Basic Metabolic Panel Sent. jj7 20:38 CBC with Diff Sent. jj7 20:38 LFT's Sent. jj7 20:38 NT PRO-BNP Sent. jj7 20:38 PT-INR Sent. jj7 20:38 Troponin HS Sent. jj7 20:38 SARS RAPID Sent. jj7 20:38 Influenza Screen (a \T\ B) Sent. jj7 20:52 CT Head Brain wo Cont In Process Unspecified. EDMS 21:49 Adi Rodas MD is Referral Physician. sp4 21:56 IV discontinued, intact, bleeding controlled, No redness/swelling at site. Pressure rv dressing applied. Administered Medications: 21:56 Discontinued: NS 0.9% IV 1000 ml IV at 125 ml/hr continuous rv 02:43 Drug: metoCLOPramide IVP 10 mg Route: IVP; Site: right antecubital; jj7 21:56 Follow up: Response: No adverse reaction rv 20:43 Drug: Ketorolac IVP 30 mg Route: IVP; Site: right antecubital; jj7 21:56 Follow up: Response: No adverse reaction rv 20:59 Drug: NS 0.9% IV 1000 ml Route: IV; Rate: 125 ml/hr; Site: right antecubital; jj7 21:00 Not Given (Patient Refused; STATES HE DOESNT WANT TO FEEL DROWSYy): diphenhydrAMINE IVP jj7 25 mg IVP once Medication: 20:14 VIS not applicable for this client. jj7 Outcome: 21:49 Discharge ordered by . sp4 21:56 Discharged to home ambulatory, with family. rv 21:56 Condition: improved 21:56 Discharge instructions given to patient, Instructed on discharge instructions, follow up and referral plans. medication usage, Demonstrated understanding of instructions, follow-up care, medications, Prescriptions given X 1. 21:57 Patient left the ED. rv NIH Stroke Scale - NIH Stroke Score Date: 01/21/2023 Time: 21:46 Total Score = 0 10. Dysarthria (speech clarity - read or repeat words) - 0(Normal) 11. Extinction and Inattention (visual/tactile/auditory/spatial/personal) - 0(No abnormality) 1a. Level of Consciousness (LOC) - 0(Alert) 1b. Level of Consciousness (LOC) (Month \T\ Age) - 0(Both) 1c. LOC Commands (Open \T\ Closes Eyes/Pony Ride Operator) - 0(Both) 2. Best Gaze (Lateral Gaze Paresis) - 0(Normal) 3. Visual Field Loss - 0(No visual loss) 4. Facial Palsy - 0(Normal) 5a. Left Arm: Motor (10-second hold) - 0(No drift) 5b. Right Arm: Motor (10-second hold) - 0(No drift) 6a. Left Leg: Motor (5-second hold - always test supine) - 0(No drift) 6b. Right Leg: Motor (5-second hold - always test supine) - 0(No drift) 7. Limb Ataxia (finger/nose \T\ heel/gallegos - test with eyes open) - 0(Absent) 8. Sensory Loss (pinprick arms/legs/face) - 0(Normal) 9. Best Language: Aphasia (description/naming/reading) - 0(No aphasia) Initials: sp4 Signatures: Dispatcher [employer] Alvarado Roa, RN RN Mariely Duobis3 Janna Morton RN RN kd3 Michael Cano RN RN jj7 Jamari Larios MD MD sp4
--- NOTE | 2023-01-21 21:51 | EDPHYS ---
Physician Documentation [facility] Name: Allen Hardy Age: 62 yrs Sex: Male : 1960 Arrival Date: 01/21/2023 Time: 20:05 Bed 6 Private MD: ED Physician Jamari Larios HPI: 01/21 20:11 This 62 yrs old Male presents to ER via Unassigned with complaints of sp4 Headache, Dizziness, Shortness Of Breath. 20:47 The patient describes the headache as aching, constant, pounding. 62-year-old male with sp4 no reported prior medical problems presents with acute onset of worsening global headache starting this afternoon. This is associated with dizziness and shortness of breath.. Patient states he has been feeling this way in the past few weeks intermittently, and his doctor which is Dr. Jurado has ordered CT head and neck with angiography.. However patient could not get it done just yet.. . Patient denied lateralizing weakness or balance disorder. Denied vision symptoms.. Historical: - Allergies: 20:17 No Known Allergies; kd3 - Immunization history:: Adult Immunizations up to date. - Social history:: Smoking status: unknown. - Family history:: not pertinent. ROS: 20:47 Constitutional: Negative for fever, chills, and weight loss, Positive for Dizziness. sp4 Eyes: Negative for injury, pain, redness, and discharge, ENT: Negative for injury, pain, and discharge, Neck: Negative for injury, pain, and swelling, Cardiovascular: Negative for chest pain, palpitations, and edema, Respiratory: Negative for cough, wheezing, and pleuritic chest pain, Positive for dyspnea Abdomen/GI: Negative for abdominal pain, nausea, vomiting, diarrhea, and constipation, Back: Negative for injury and pain, : Negative for injury, bleeding, discharge, and swelling, MS/Extremity: Negative for injury and deformity, Skin: Negative for injury, rash, and discoloration, Neuro: Negative for weakness, numbness, tingling, and seizure, Positive dizziness and headache Psych: Negative for depression, anxiety, Allergy/Immunology: Negative for hives, rash, and allergies Endocrine: Negative for neck swelling, polydipsia, polyuria, polyphagia, and weight changes Hematologic/Lymphatic: Negative for swollen nodes, abnormal bleeding, and unusual bruising Exam: 20:47 Constitutional: This is a well developed, well nourished patient who is awake, alert, sp4 Uncomfortable appearing Head/Face: Normocephalic, atraumatic. Eyes: Pupils equal round and reactive to light, extra-ocular motions intact. Lids and lashes normal. Conjunctiva and sclera are not injected. Cornea within normal limits. Periorbital areas with no swelling, redness, or edema. Normal bilateral funduscopy no papilledema. ENT: Nares patent. No nasal discharge, no septal abnormalities noted. Tympanic membranes are normal and external auditory canals are clear. Oropharynx with no redness, swelling, or masses, exudates, or evidence of obstruction, uvula midline. Mucous membranes moist. Neck: Trachea midline, no thyromegaly or masses palpated, and no cervical lymphadenopathy. Supple, full range of motion without nuchal rigidity, or vertebral point tenderness. Chest/axilla: Normal chest wall appearance and motion. Nontender with no deformity. No lesions are appreciated. Cardiovascular: Regular rate and rhythm with a normal S1 and S2. No gallops, murmurs, or rubs. Normal PMI, no JVD. No pulse deficits. Respiratory: Lungs have equal breath sounds bilaterally, clear to auscultation and percussion. No rales, rhonchi or wheezes noted. No increased work of breathing, no retractions or nasal flaring. Abdomen/GI: Soft, non-tender, with normal bowel sounds. No distension or tympany. No guarding or rebound. No evidence of tenderness throughout. Back: No spinal tenderness. No costovertebral tenderness. Skin: Warm, dry with normal turgor. Normal color with no rashes, no lesions, and no evidence of cellulitis. MS/ Extremity: Pulses equal, no cyanosis. Neurovascular intact. Full, normal range of motion. Neuro: Awake and alert, GCS 15, oriented to person, place, time, and situation. Cranial nerves II-XII grossly intact. Motor strength 5/5 in all extremities. Sensory grossly intact. Psych: Awake, alert, with orientation to person, place and time. Behavior, mood, and affect are within normal limits 21:10 ECG was reviewed by the Attending Physician. 21:04 NSR at 95 bpm sp4 Vital Signs: 20:14 Temp 98. 6(O); Pulse Ox CT r% ; Weight 136.08 kg; Height 6 ft. 4 in. ; kd3 20:18 BP 127 / 90; Pulse 103; Resp 20; Temp 98.6(O); Pulse Ox 94% on R/A; kd3 21:16 BP 111 / 89; Pulse 94; Resp 18; Pulse Ox 96% ; jj7 20:14 Body Mass Index 36.52 (136.08 kg, 193.04 cm) kd3 NIH Stroke Scale Scores: 21:46 NIHSS Score: 0 sp4 Rahul Coma Score: 21:46 Eye Response: spontaneous(4). Motor Response: obeys commands(6). Verbal Response: sp4 oriented(5). Total: 15. 21:56 Eye Response: spontaneous(4). Motor Response: obeys commands(6). Verbal Response: rv oriented(5). Total: 15. MDM: 20:22 Patient medically screened. sp4 21:46 Differential diagnosis: cerebral abscess, epidural hematoma, migraine, neoplasm, sp4 subarachnoid bleed, subdural hematoma, tension headache, vasomotor headache. 21:46 Data reviewed: vital signs, nurses notes, lab test result(s), EKG, radiologic studies, sp4 CT scan, plain films. Consideration of Admission/Observation Patient was admitted/placed on observation. Escalation of care including admission/observation considered. ED course: Work-up today including EKG is unremarkable, CT head negative, BNP is normal/ patient feels better after medications. . ED course: Stable for discharge home with advised to see marketing programs specialist on outpatient basis for echocardiogram. Otherwise follow-up back with primary MD for additional evaluation.. 01/21 20:18 Order name: Basic Metabolic Panel; Complete Time: 21:51 sp4 01/21 20:18 Order name: CBC with Diff; Complete Time: 21:28 sp4 01/21 20:18 Order name: LFT's; Complete Time: 21:51 sp4 01/21 20:18 Order name: NT PRO-BNP; Complete Time: 21:51 sp4 01/21 20:18 Order name: PT-INR; Complete Time: 21:28 sp4 01/21 20:18 Order name: Troponin HS; Complete Time: 21:51 sp4 01/21 20:18 Order name: CRP; Complete Time: 21:51 sp4 01/21 20:18 Order name: Influenza Screen (a \T\ B); Complete Time: 21:28 sp4 01/21 20:18 Order name: SARS RAPID; Complete Time: 21:28 sp4 01/21 21:30 Order name: T4 Free; Complete Time: 21:51 EDMS 01/21 21:30 Order name: Thyroid Stimulating Hormone; Complete Time: 21:51 EDMS 01/21 20:18 Order name: XRAY Chest (1 view); Complete Time: 21:28 sp4 01/21 20:18 Order name: CT Head Brain wo Cont; Complete Time: 21:28 sp4 01/21 20:18 Order name: EKG; Complete Time: 20:18 sp4 01/21 20:18 Order name: Cardiac monitoring; Complete Time: 20:38 sp4 01/21 20:18 Order name: EKG - Nurse/Tech; Complete Time: 21:06 sp4 01/21 20:18 Order name: IV Saline Lock; Complete Time: 20:38 sp4 01/21 20:18 Order name: Labs collected and sent; Complete Time: 20:38 sp4 01/21 20:18 Order name: O2 Per Protocol; Complete Time: 20:38 sp4 01/21 20:18 Order name: O2 Sat Monitoring; Complete Time: 20:38 sp4 EC:10 Rate is 95 beats/min. Rhythm is regular, Normal Sinus Rhythm. QRS [place] is Normal. [place] sp4 interval is prolonged. QRS interval is normal. QT interval is normal. T waves are Normal. No ST changes noted. Clinical impression: No evidence of ischemia. Interpreted by me. Administered Medications: 21:56 Discontinued: NS 0.9% IV 1000 ml IV at 125 ml/hr continuous rv 02:43 Drug: metoCLOPramide IVP 10 mg Route: IVP; Site: right antecubital; jj7 21:56 Follow up: Response: No adverse reaction rv 20:43 Drug: Ketorolac IVP 30 mg Route: IVP; Site: right antecubital; jj7 21:56 Follow up: Response: No adverse reaction rv 20:59 Drug: NS 0.9% IV 1000 ml Route: IV; Rate: 125 ml/hr; Site: right antecubital; jj7 21:00 Not Given (Patient Refused; STATES HE DOESNT WANT TO FEEL DROWSYy): diphenhydrAMINE IVP jj7 25 mg IVP once Disposition Summary: 01/21/23 21:49 Discharge Ordered Location: Home sp4 Problem: new sp4 Symptoms: have improved sp4 Condition: Stable sp4 Diagnosis - Episodic tension-type headache sp4 - Dyspnea, unspecified sp4 Followup: sp4 - With: Adi Rodas MD - When: 7 - 10 days - Reason: Recheck today's complaints Discharge Instructions: - Discharge Summary Sheet sp4 - Shortness of Breath, Adult, [id number] sp4 - General Headache Without Cause, [id number] sp4 Prescriptions: - Fioricet 50-300-40 mg Oral capsule - take 1 capsule by ORAL route 3 times per day PRN headache; 30 capsule; Refills: sp4 0, Product Selection Permitted NIH Stroke Scale - NIH Stroke Score Date: 01/21/2023 Time: 21:46 Total Score = 0 10. Dysarthria (speech clarity - read or repeat words) - 0(Normal) 11. Extinction and Inattention (visual/tactile/auditory/spatial/personal) - 0(No abnormality) 1a. Level of Consciousness (LOC) - 0(Alert) 1b. Level of Consciousness (LOC) (Month \T\ Age) - 0(Both) 1c. LOC Commands (Open \T\ Closes Eyes/Tray Setter) - 0(Both) 2. Best Gaze (Lateral Gaze Paresis) - 0(Normal) 3. Visual Field Loss - 0(No visual loss) 4. Facial Palsy - 0(Normal) 5a. Left Arm: Motor (10-second hold) - 0(No drift) 5b. Right Arm: Motor (10-second hold) - 0(No drift) 6a. Left Leg: Motor (5-second hold - always test supine) - 0(No drift) 6b. Right Leg: Motor (5-second hold - always test supine) - 0(No drift) 7. Limb Ataxia (finger/nose \T\ heel/gallegos - test with eyes open) - 0(Absent) 8. Sensory Loss (pinprick arms/legs/face) - 0(Normal) 9. Best Language: Aphasia (description/naming/reading) - 0(No aphasia) Initials: sp4 Signatures: Dispatcher [employer] Janna Mcdaniels RN RN kd3 Michael Cano RN RN jj7 Jamari Larios MD MD sp4 Alvarado Tang RN rv Corrections: (The following items were deleted from the chart) : 20:29 THYROID STIMULAT HORMONE+C.LAB.BRZ ordered. EDMS EDMS 20:29 T4 FREE+C.LAB.BRZ ordered. EDMS EDMS
[2023-01-21 22:42] VITALS: TEMP 98.6
[2023-01-21 22:44] VITALS: BP 111/89; O2SAT 96
--- NOTE | 2023-01-22 17:41 | EKG ---
Test Date: 2023-01-21 Test Time: 21:04:12 Corporate Communications Specialist: DARLENE MEASUREMENT RESULTS: Intervals: Rate: 95 ID: [id number] QRSD: 90 QT: 350 QTc: 439 [place]: P: 40 ID: [id number] QRS: 39 T: 44 INTERPRETIVE STATEMENTS: Sinus rhythm with 1st degree AV block Otherwise normal ECG No previous ECG available for comparison Electronically Signed On 01-22-23 17:39:25 CDT by David Suero
== END 2023-01-21 21:57 | disposition home or self-care (01) ==
LOC: ER 20:05
DX: G44.219 Episodic tension-type headache, not intractable (principal); R06.00 Dyspnea, unspecified; R42 Dizziness and giddiness; Z20.822 Contact with and (suspected) exposure to COVID-19
CPT/HCPCS: 85025; 80048; 36415; 85610; 80076; 84443; 84484; 84439; 83880; 86140; 87804 ×2; 70450; 71045; 87811; J2765; J7030; 93005; J1200

== ENCOUNTER 2023-11-21 18:38 | Emergency (ER) | payer OTHER ==
[2023-11-21] MEDS ORDERED: HYDROCODONE/APAP 5/325 MG TAB ONE (19:09)
[2023-11-21] MEDS ORDERED: LIDOCAINE 1% 20 ML MDV ONE (19:09)
[2023-11-21] MEDS ORDERED: TDAP (DIPHTH,PERTUSS(ACELL),TET VAC) 0.5 ML VIAL IMVAC ONE (19:09)
[2023-11-21] MEDS ORDERED: DERMABOND SKIN ADHESIVE TOP ONE (19:47)
--- NOTE | 2023-11-21 19:51 | EDPHYS ---
Physician Documentation [facility] Name: Allen Hardy Age: 63 yrs Sex: Male : 1960 Arrival Date: 11/21/2023 Time: 18:38 Bed 13 Private MD: ED Physician Shaji Clemons HPI: 11/20 19:51 This 63 yrs old Male presents to ER via Wheelchair with complaints of Puncture kb Wound To Foot - by a piece of glass. 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 States he had a small piece of glass in his right flip flop, had an itch to left foot and used the right to scratch it causing laceration from the glass. States it is not a big cut, but he couldn't get it to stop bleeding so he came in. . Historical: - Allergies: 18:50 No Known Allergies; iw - Home Meds: 18:50 None [Active]; iw - PMHx: 18:50 None; iw - PSHx: 18:50 knee; hermorrhoids; iw - Immunization history:: Adult Immunizations Last tetanus immunization: unknown. - Infectious Disease History:: Denies. - Social history:: Smoking status: Patient denies any tobacco usage or history of. ROS: 19:51 Constitutional: As per HPI kb Exam: 19:51 Constitutional: This is a well developed, well nourished patient who is awake, alert, kb and in no acute distress. Head/Face: Normocephalic, atraumatic. ENT: Moist Mucous membranes Cardiovascular: Regular rate Respiratory: Respirations even and unlabored. No increased work of breathing. Talking in full sentences MS/ Extremity: Pulses equal, no cyanosis. Neurovascular intact. Full, normal range of motion. Neuro: Awake and alert, GCS 15, oriented to person, place, time, and situation. Moves all extremities. Normal gait. 19:51 Skin: injury, laceration(s), the wound is approximately 2 cm(s), of the medial aspect of left heel, that can be described as clean, no foreign body, linear, without bleeding, Vital Signs: 18:49 BP 135 / 90; Pulse 95; Resp 16; Temp 98.4; Pulse Ox 95% on R/A; iw Laceration: 19:49 Wound Repair of 2cm ( 0.8in ) subcutaneous laceration to medial aspect of left heel. kb Linear shaped.. Distal neuro/vascular/tendon intact. Wound prep: Moderate cleansing. Skin closed with thin layer Adhesive skin closure using Dermabond. Dressed with steri-strips. Patient tolerated well. MDM: 18:43 Patient medically screened. kb 19:51 Differential diagnosis: laceration, abrasion. Data reviewed: vital signs, nurses notes. kb Counseling: I had a detailed discussion with the patient and/or guardian regarding the historical points, exam findings, and any diagnostic results supporting the discharge/admit diagnosis, the need for outpatient follow up, a family practitioner, to return to the emergency department if symptoms worsen or persist or if there are any questions or concerns that arise at home. 19:53 ED course: bleeding stopped after pressure dressing. Laceration appears to have kb involved a varicose vein. dermabond and steri-strips applied. Pt educated on return precautions and to apply pressure if it does start bleeding again. . 11/20 18:56 Order name: Dressing - Wound; Complete Time: 19:18 kb 11/20 18:56 Order name: Gloves, Sterile: size 6; Complete Time: 19:18 kb 11/20 18:56 Order name: Prolene, Sutures; Complete Time: 19:18 kb 11/20 18:56 Order name: Setup Suture Tray; Complete Time: 19:18 kb 11/20 19:44 Order name: Dermabond; Complete Time: 19:47 kb Administered Medications: 19:18 Drug: Boostrix Tdap IM 0.5 ml IM once; as a single dose Route: IM; Site: right deltoid; cp4 19:26 Follow up: Response: No adverse reaction cp4 19:18 Drug: HYDROcodone-acetaminophen PO 5 mg-325 mg 1 tabs PO once Route: PO; cp4 19:26 Follow up: Response: No adverse reaction cp4 19:44 Not Given (Physician Discretion): [id number]-lchqzmvfilr-5%: (1:100,000) 1 vials 20 ml kb Infiltration once; to bedside Disposition: 11/21 08:53 Co-signature as Attending Physician, Shaji Clemons MD I reviewed the patient's care rt provided by the Advanced Practice Provider and agree with the diagnosis and treatment plan. Disposition Summary: 11/21/23 19:50 Discharge Ordered Notes: Location: Home kb Condition: Stable kb Diagnosis - Laceration without foreign body of foot kb Followup: kb - With: Emergency Department - When: As needed - Reason: Worsening of condition Followup: kb - With: Private Physician - When: 2 - 3 days - Reason: Recheck today's complaints, Continuance of care, Re-evaluation by your physician Discharge Instructions: - Discharge Summary Sheet kb - Laceration Care, Adult, [id number] kb Forms: - Medication Reconciliation Form kb - Thank You Letter kb - Antibiotic Education kb - Prescription Opioid Use kb - Patient Portal Instructions kb - Leadership Thank You Letter kb Signatures: Alexandra Bowers FNP-C FNP-Poppy Gutiérrez RN RN iw Shaji Clemons MD MD rt Potter, Christina cp4
--- NOTE | 2023-11-21 19:51 | ER ---
Nurse's Notes [facility] Name: Allen Haryd Age: 63 yrs Sex: Male : 1960 Arrival Date: 11/21/2023 Time: 18:38 Bed 13 Private MD: Diagnosis: Laceration without foreign body of foot Presentation: 11/20 18:49 Chief complaint: Patient states: cut his inner left foot/heel on some glass, thinks he iw nicked a vein because it was still bleeding , not on blood thinners. 18:49 Acuity: TEE 4 iw 18:49 Coronavirus screen: At this time, the client does not indicate any symptoms associated iw with coronavirus-19. Ebola Screen: Patient negative for fever greater than or equal to 101.5 degrees Fahrenheit, and additional compatible Ebola Virus Disease symptoms Patient denies exposure to infectious person. Patient denies travel to an Ebola-affected area in the 21 days before illness onset. No symptoms or risks identified at this time. Initial Sepsis Screen: Does the patient meet any 2 criteria? No. Patient's initial sepsis screen is negative. Does the patient have a suspected source of infection? No. Patient's initial sepsis screen is negative. Risk Assessment: Do you want to hurt yourself or someone else? Patient reports no desire to harm self or others. Onset of symptoms was November 21, 2023. 18:49 Method Of Arrival: Wheelchair iw Historical: - Allergies: 18:50 No Known Allergies; iw - Home Meds: 18:50 None [Active]; iw - PMHx: 18:50 None; iw - PSHx: 18:50 knee; hermorrhoids; iw - Immunization history:: Adult Immunizations Last tetanus immunization: unknown. - Infectious Disease History:: Denies. - Social history:: Smoking status: Patient denies any tobacco usage or history of. Screenin:10 [facility] ED Fall Risk Assessment (Adult) History of falling in the last 3 months, cp4 including since admission No falls in past 3 months (0 pts) Confusion or Disorientation No (0 pts) Intoxicated or Sedated No (0 pts) Impaired Gait Mobility Assist Device Used No (0 pt) Altered Elimination No (0 pt) Score/Fall Risk Level 0 - 2 = Low Risk Oriented to surroundings, Maintained a safe environment, Assessed \T\ reinforced patient's understanding of fall precautions, Hourly rounding (assess needs \T\ fall precautionary measures) done. 20:14 Abuse screen: Denies threats or abuse. Nutritional screening: No deficits noted. cp4 Tuberculosis screening: No symptoms or risk factors identified. Assessment: 20:10 General: Appears uncomfortable, Behavior is calm, cooperative, appropriate for age. cp4 Pain:. Injury Description: Laceration is clean, 0.5 to 2.5 cm long. Vital Signs: 18:49 BP 135 / 90; Pulse 95; Resp 16; Temp 98.4; Pulse Ox 95% on R/A; iw ED Course: 18:41 Patient arrived in ED. ra3 18:43 Alexandra Bowers [facility]-C [facility]. kb 18:43 Shaji Clemons MD is Attending Physician. kb 18:49 Triage completed. iw 18:51 Arm band placed on. iw 18:57 Danielle Kwok is Primary Nurse. cp4 20:10 Bed in low position. Call light in reach. Side rails up X 1. Provided Education on: cp4 laceration. 20:10 Assist provider with laceration repair that was 2.5 cm. or less using Steri-strips. Set cp4 up tray. Performed by Alexandra VELÁSQUEZ Dressed with brandin wrap Patient tolerated well. 20:13 Patient did not have IV access during this emergency room visit. cp4 Administered Medications: 19:18 Drug: Boostrix Tdap IM 0.5 ml IM once; as a single dose Route: IM; Site: right deltoid; cp4 19:26 Follow up: Response: No adverse reaction cp4 19:18 Drug: HYDROcodone-acetaminophen PO 5 mg-325 mg 1 tabs PO once Route: PO; cp4 19:26 Follow up: Response: No adverse reaction cp4 19:44 Not Given (Physician Discretion): etbexrkpt-ozghfwywhwq-3%: (1:100,000) 1 vials 20 ml kb Infiltration once; to bedside Medication: 20:10 VIS not applicable for this client. cp4 Outcome: 19:50 Discharge ordered by . kb 20:13 Discharged to home ambulatory, cp4 20:13 Condition: stable 20:13 Discharge instructions given to patient, Instructed on discharge instructions, follow up and referral plans. Demonstrated understanding of instructions, follow-up care, 20:14 Patient left the ED. cp4 Signatures: Alexandra Bowers, ESCROW PROCESSOR-C ESCROW PROCESSOR-Poppy Gutiérrez, RN RN iw Danielle Kwok cp4 Rosemary Higgins ra3 Corrections: (The following items were deleted from the chart) 18:50 18:49 Chief complaint: Patient states: cut his inner right foot/heel on some glass, iw thinks he nicked a vein because it was still bleeding iw 18:53 18:49 Chief complaint: Patient states: cut his inner right foot/heel on some glass, iw thinks he nicked a vein because it was still bleeding , not on blood thinners iw
[2023-11-21 20:37] VITALS: BP 135/90; TEMP 98.4; O2SAT 95
== END 2023-11-21 20:14 | disposition home or self-care (01) ==
LOC: ER 18:38
PROC: 0HQNXZZ Repair Left Foot Skin, External Approach (ICD-10-PCS; principal; 2023-11-21)
DX: S91.322A Laceration with foreign body, left foot, initial encounter (principal)
CPT/HCPCS: 96372; 99284; 12011; J2001